=== PATIENT | female | born 1940 | race Caucasian/White ===

== ENCOUNTER 2019-07-03 17:42 | Inpatient (IN) | payer BC ==
[~2019-07-03] VITALS: Ht 162.6 cm; Wt 60.2 kg
[2019-07-03 19:00] VITALS: BP 225/85
[2019-07-03] MEDS ORDERED: guaiFENesin ORAL 200 MG/10 ML LIQUID. PO PRN (19:15)
[2019-07-03] MEDS ORDERED: LORazepam 0.5 MG TABLET PO PRN (19:15)
[2019-07-03] MEDS ORDERED: ALBUTEROL SULFATE 2.5 MG/3 ML NEBU. NEB PRN (19:15)
[2019-07-03] MEDS ORDERED: DOCUSATE SODIUM 100 MG CAPSULE. PO PRN (19:15)
[2019-07-03] MEDS ORDERED: ZOLPIDEM 5 MG TABLET. PO PRN (19:15)
[2019-07-03] MEDS ORDERED: ONDANSETRON PF 4 MG/2 ML VIAL. IV PRN (19:15)
--- NOTE | 2019-07-03 19:30 | PDOC1 ---
History and Physical Date of Admission Date of Admission 07/03/2019 Identification/Chief Complaint Chief Complaint I zhao coe Source Source: Chart review, Patient History of Present Illness History of Present Illness Patient is a 79 year old female who recently moved from [place] who was in her usual state of health until Wednesday when she started noticing dyspnea. she is currently having dialysis on wednesday and wednesday. She had her treatment as usual. She denies sick contacts, no sputum production, no pleurisy has been reported nevertheless she noticed dyspnea especially on exertion She denies dietary transgression no excessfluid intake wither, she denies PND no orthpnea reported, she does have a dry cough, no changes in her sense of smell or taste was reported. Patient at the time of my note is wearing 2 liters of oxygen she does not seem to have excess work of breathing nevertheless she does have evidence of Oscar b lines on x ray done at outside facility. She probably has volume overload and her BP is uncontrolled as per the outside facility report. She has been taking her medications which are not available with the paper work sent from outside facility plan of care explained in detail I have answered all her questions to the best of my abilities. Past Medical History Cardiovascular: CAD, HTN Pulmonary: Pulmonary embolus Renal/: Chronic renal insuff Past Surgical History Past Surgical History: Appendectomy Family History Family History: Family History Unknown Social History Smoke: No ALCOHOL: none Drugs: None ROS Review of System CONSTITUTIONAL: No fever or chills EYES: No recent changes SKIN: No rash or itching CARDIOVASCULAR: No chest pain, syncope, palpitations, or edema RESPIRATORY: No SOB or cough GASTROINTESTINAL: No nausea, vomiting or abdominal pain NEUROLOGICAL: No headaches or weakness ENDOCRINE: No cold or heat intolerance GENITOURINARY: No urgency or frequency of urination MUSCULOSKELETAL: No back pain or joint pain LYMPHATICS: No enlarged lymph nodes PSYCHIATRIC: No anxiety or depression Physical Exam Physical Exam GEN.: No apparent distress. Alert and oriented. HEENT: Head is normocephalic, atraumatic NECK: Supple. LUNGS: Clear to auscultation. HEART: RRR, S1, S2 present. Peripheral pulses intact ABDOMEN: Soft, nontender. Positive bowel sounds. EXTREMITIES: Without any cyanosis. NEUROLOGIC: Normal speech, normal tone PSYCHIATRIC: Normal affect, normal mood. SKIN: No ulcerations VTE Prophylaxis Ordered VTE Prophylaxis Devices: No VTE Pharmacological Prophylaxi: Yes Assessment/Plan Assessment/Plan Dyspnea which seems to be volume overload ESRD on HD Uncontrolled hypertension, hypertensive urgency as per outside facility COPD history of depression History of CAD with old WA as per records, currently asymtpomatic. Plan: consult nephrology for dialysis restart home meds once available will start amlodipine, lasix and hidralazine further recommendations based on the clinical course DVT prophylaxis: heparin ELIGIO JONES MD Jul 03, 2019 19:30
[2019-07-03] MEDS ORDERED: NICO1PAT21 TP (19:37)
[2019-07-03] MEDS ORDERED: HYDR-2869 PO (19:37)
[2019-07-03] MEDS ORDERED: NIFE30TA15 PO (19:38)
[2019-07-03] MEDS ORDERED: ATOR80TA72 PO (19:39)
[2019-07-03] MEDS ORDERED: LISI-130 PO (19:39)
[2019-07-03] MEDS ORDERED: ALBU2.5V8 IH (19:41)
[2019-07-03] MEDS ORDERED: CLOP75TA PO (19:42)
[2019-07-03] MEDS ORDERED: ASPI81TA59 PO (19:43)
[2019-07-03] MEDS ORDERED: NICOTINE 21MG PATCH. TD PRN (19:45)
[2019-07-03] MEDS: FUROSEMIDE 40 MG/4 ML VIAL. IVP SCH (20:52)
[2019-07-03] MEDS: ATORVASTATIN CALCIUM 20 MG TABLET PO SCH (20:52)
[2019-07-03] MEDS: amLODIPine BESYLATE 5 MG TABLET PO SCH (20:56)
[2019-07-03 22:31] VITALS: BP 222/108
[2019-07-03] MEDS: hydrALAZINE 20 MG/ML VIAL. IVP PRN (22:34)
[2019-07-03 22:58] VITALS: BP 246/110
--- NOTE | 2019-07-03 23:49 | NUR ---
Call placed to Re: bp 220/98 after hydralizine given and pt request tylenol pm.
[2019-07-04] VITALS (15 sets, daily range): BP systolic 129–221; BP diastolic 59–98
[2019-07-04] MEDS: ACETAMINOPHEN 325 MG TABLET. PO PRN (00:26)
--- NOTE | 2019-07-04 08:07 | PDOC ---
PROGRESS NOTES Chief Complaint Chief Complaint A/P: Dyspnea which seems to be volume overload ESRD on HD Uncontrolled hypertension, hypertensive urgency as per outside facility COPD history of depression History of CAD with old MS as per records, currently asymptomatic History of Present Illness History of Present Illness Ms Coburn is a 79 year old female w/ PMHx HTN, ESRD TuThSa, COPD, CAD who recently moved from [place] to [place], [place] who was in her usual state of health until 07/01/2019 when she started noticing dyspnea. She denies sick contacts, no sputum production, no pleurisy has been reported nevertheless she noticed dyspnea especially on exertion. She denies dietary transgression no excess fluid and in fact has modified her lifestyle significantly. Stable dry weight of 62kg. Did have desaturations less than 89%, placed on 2 liters of oxygen she does not seem to have excess work of breathing nevertheless she does have evidence of Oscar b lines on x ray done at outside facility. She probably has volume overload and her BP is uncontrolled as per the outside facility report. BNP > 35K. Still on O2. Seen on dialysis. Noted with goal 3300 UF at dialysis. No chest pain. Vitals Vitals Vital Signs Date Time Temp Pulse Resp B/P (MAP) Pulse Ox O2 Delivery O2 Flow Rate FiO2 07/04/19 06:17 98.7 66 18 129/59 (82) 97 Nasal Cannula 2.0 98.7 Physical Exam General: Alert, Oriented X3, Cooperative Heart: Regular rate, Normal S1, Normal S2 Lungs: Crackles Abdomen: Normal bowel sounds, Soft Extremities: No clubbing, No cyanosis, Other (1+) Skin: No rashes, No breakdown Labs LABS Laboratory Tests Test 07/04/19 07:31 Glucose (Fingerstick) 94 mg/dL (70-99) Comment Review of Relevant I have reviewed the following items harish (where applicable) has been applied. Labs Laboratory Tests Test 07/04/19 07:31 Glucose (Fingerstick) 94 mg/dL (70-99) Laboratory Tests Test 07/04/19 07:31 Glucose (Fingerstick) 94 mg/dL (70-99) Medications Current Medications Ondansetron HCl (Zofran) 4 mg PRN Q4HRS PRN IV NAUSEA/VOMITING; Start 07/03/19 at 19:15 Zolpidem Tartrate (Ambien) 5 mg PRN QHS PRN PO INSOMNIA; Start 07/03/19 at 19:15 Acetaminophen (Tylenol) 650 mg PRN Q4HRS PRN PO TEMP OVER 100.4F OR MILD PAIN Last administered on 07/04/19at 00:26; Start 07/03/19 at 19:15 Docusate Sodium (Colace) 100 mg PRN BID PRN PO CONSTIPATION; Start 07/03/19 at 19:15 Albuterol Sulfate (Ventolin Neb Soln) 2.5 mg PRN Q4HRS PRN NEB SHORTNESS OF BREATH Last administered on 07/04/19at 02:46; Start 07/03/19 at 19:15 Guaifenesin (Robitussin) 200 mg PRN Q4HRS PRN PO COUGH; Start 07/03/19 at 19:15 Lorazepam (Ativan) 0.5 mg PRN Q4HRS PRN PO ANXIETY / AGITATION; Start 07/03/19 at 19:15 Amlodipine Besylate (Norvasc) 5 mg DAILY PO Last administered on 07/03/19at 20:56; Start 07/03/19 at 21:00 Hydralazine HCl (Apresoline Inj) 10 mg PRN Q4HRS PRN IVP ELEVATED BP, SEE COMMENTS Last administered on 07/03/19at 22:34; Start 07/03/19 at 19:15 Furosemide (Lasix) 40 mg BID92 IVP Last administered on 07/03/19at 20:52; Start 07/03/19 at 21:00 Aspirin (Aspirin Chewable) 81 mg DAILY PO ; Start 07/04/19 at 09:00 Clopidogrel Bisulfate (Plavix) 75 mg DAILY PO ; Start 07/04/19 at 09:00 Nicotine (Nicoderm Cq 21mg) 1 patch PRN DAILY PRN TD NICOTINE WITHDRAWAL; Start 07/03/19 at 19:45 Atorvastatin Calcium (Lipitor) 20 mg QHS PO Last administered on 07/03/19at 20:52; Start 07/03/19 at 21:00 Nicardipine HCl 50 mg/Sodium Chloride 250 ml @ 25 mls/hr CONT PRN IV SEE I/O RECORD Last administered on 07/04/19at 00:36; Start 07/04/19 at 00:15 Active Scripts Active Reported Children's Aspirin (Aspirin) 81 Mg Tab.chew 1 Tab PO DAILY 30 Days Clopidogrel (Clopidogrel Bisulfate) 75 Mg Tablet 1 Tab PO DAILY Proair Hfa (Albuterol Sulfate) 8.5 Gm Hfa.aer.ad 2 Puff IH PRN Q4-6HRS PRN 21 Days Atorvastatin Calcium 80 Mg Tablet 20 Mg PO QHS Lisinopril 40 Mg Tablet 1 Tab PO DAILY Nifedipine Er (Nifedipine) 30 Mg Tablet.er 3 Tab PO BID Hydralazine Hcl 50 Mg Tablet 1.5 Tab PO TID NICODERM CQ 21mg (Nicotine) 1 Each Patch.td24 1 Patch TP DAILY PRN Vitals/I & O Vital Sign - Last 24 Hours 07/03/19 07/03/19 07/03/19 07/03/19 17:30 19:00 20:46 20:56 Temp 97.8 97.8 Pulse 81 64 Resp 22 B/P (MAP) 225/85 (131) 222/89 Pulse Ox 95 O2 Delivery Nasal Cannula Nasal Cannula Nasal Cannula O2 Flow Rate 2.0 2.0 2.0 07/03/19 07/03/19 07/03/19 07/03/19 22:31 22:34 22:55 22:58 Temp 99.6 99.6 Pulse 64 79 Resp 20 B/P (MAP) 222/108 (146) 222/108 246/110 (155) Pulse Ox 96 O2 Delivery Nasal Cannula Nasal Cannula O2 Flow Rate 2.0 2.0 07/04/19 07/04/19 07/04/19 07/04/19 00:36 01:04 01:35 01:53 Pulse 77 77 78 78 B/P (MAP) 221/98 (139) 189/86 (120) 170/63 (98) 188/78 (114) Pulse Ox 96 O2 Delivery Nasal Cannula O2 Flow Rate 2.0 07/04/19 07/04/19 07/04/19 07/04/19 02:05 02:35 02:46 03:27 Temp 98.4 98.4 Pulse 69 62 B/P (MAP) 169/73 (105) 153/68 (96) Pulse Ox 97 O2 Delivery Nasal Cannula O2 Flow Rate 2.0 07/04/19 07/04/19 03:37 06:17 Temp 98.7 98.7 Pulse 67 66 Resp 18 B/P (MAP) 148/64 (92) 129/59 (82) Pulse Ox 97 O2 Delivery Nasal Cannula O2 Flow Rate 2.0 Intake and Output 07/03/19 07/03/19 07/04/19 15:00 23:00 07:00 Intake Total 120 ml 550 ml Output Total 50 ml Balance 120 ml 500 ml SHAHANA OBRIEN MD Jul 04, 2019 08:07
[2019-07-04 09:27] LABS: BASO % 0 % (0-3); EOS % 1 % (0-3); HEMATOCRIT 33.4 % (36.0-47.0); HEMOGLOBIN 10.9 g/dL (12.0-15.5); LYMPH # 1.3 x10^3/uL (1.0-4.8); LYMPH % 17 % (24-48); MEAN CORPUSCULAR HEMOGLOBIN 35 pg (25-35); MEAN CORPUSCULAR HGB CONC 33 g/dL (31-37); MEAN CORPUSCULAR VOLUME 107 fL (79-100); MONO # 0.5 x10^3/uL (0.0-1.1); MONO % 6 % (0-9); NEUT # 5.8 x10^3/uL (1.8-7.7); NEUT % 76 % (31-73); PLATELET COUNT 234 x10^3/uL (140-400); RED BLOOD COUNT 3.13 x10^6/uL (3.50-5.40); RED CELL DISTRIBUTION WIDTH 15.1 % (11.5-14.5); WHITE BLOOD COUNT 7.7 x10^3/uL (4.0-11.0)
[2019-07-04] MEDS ORDERED: IV NORMAL SALINE 1000ML BAG 1,000 ML IV PRN ×2 (09:47)
[2019-07-04 09:50] LABS: CALCIUM 8.6 mg/dL (8.5-10.1); CREATININE 5.6 mg/dL (0.6-1.0); GFR 7.4; POTASSIUM 4.9 mmol/L (3.5-5.1)
[2019-07-04] MEDS: CLOPIDOGREL BISULFATE 75 MG TABLET PO SCH (09:50)
[2019-07-04] MEDS: amLODIPine BESYLATE 5 MG TABLET PO SCH (09:51)
[2019-07-04] MEDS: ASPIRIN CHEWABLE 81 MG TABLET. PO SCH (09:51)
[2019-07-04] MEDS: FUROSEMIDE 40 MG/4 ML VIAL. IVP SCH ×2 (09:51→16:44)
[2019-07-04 09:54] LABS: CHOLESTEROL/HDL RATIO 2.9
[2019-07-04] MEDS ORDERED: diphenhydrAMINE 50 MG/ML VIAL IV PRN ×2 (10:00)
[2019-07-04] MEDS ORDERED: ALBUMIN HUMAN 25% 200 ML IV PRN (10:00)
[2019-07-04] MEDS ORDERED: ACETAMINOPHEN 500 MG TABLET PO PRN (10:00)
[2019-07-04] MEDS ORDERED: DIALYSIS PATIENT. MC PRN (10:00)
--- NOTE | 2019-07-04 10:35 | CARD ---
MR#: [id number] Date of Study: 07/04/2019 Ordering Physician: ELIGIO JONES, Referring Physician: ELIGIO JONES Tech: Falguni Cintron RDCS APPROVED REPORT EXAM: Two-dimensional and M-mode echocardiogram with Doppler and color Doppler. Other Information Quality : Good INDICATION COPD Dyspnea Cardiac Disease: CAD ESRD RISK FACTORS Hypertension 2D DIMENSIONS Left Atrium(2D)4.6 (1.6-4.0cm)IVSd1.2 (0.7-1.1cm) Aortic Root(2D)2.7 (2.0-3.7cm)LVDd5.1 (3.9-5.9cm) LVOT Diameter1.9 (1.8-2.4cm)PWd0.9 (0.7-1.1cm) LVDs2.8 (2.5-4.0cm)FS (%) 30.0 % SV94.3 mlLVEF(%)60.0 (>50%) Aortic Valve AoV Peak Blaze.211.5cm/sAoV VTI48.0cm AO Peak GR.17.9mmHgLVOT Peak Blaze.145.4cm/s AO Mean GR.9mmHgAVA (VMAX)2.02cm2 SERVANDO (VTI)2.37em2LP P 1/2 Vhjo520hu Mitral Valve MV E Avoxswsg346.9cm/sMV DECEL [id number] MV A Xrwvgicc61.5cm/sE/A Ratio1.6 Tricuspid Valve TR P. Plkyejzt212bi/sRAP [id number] TR Peak Gr.50aoEuIXCF81dfMl Pulmonary Vein S1 Kdwkvcve96.9cm/sD2 Loxsoclz376.1cm/s LEFT VENTRICLE The left ventricle is normal size. There is mild concentric left ventricular hypertrophy. The left ve ntricular systolic function is normal. The Ejection Fraction is 55-60%. There is normal LV segmental wall motion. Transmitral Doppler flow pattern is Grade II-pseudonormal filling dynamics. RIGHT VENTRICLE The right ventricle is normal size. The right ventricular systolic function is normal. ATRIA The left atrium is mildly dilated. The right atrium size is normal. The interatrial septum is intact with no evidence for an atrial septal defect or patent foramen ovale as noted on 2-D or Doppler imagi ng. AORTIC VALVE The aortic valve is calcified but opens well. Doppler and Color Flow revealed moderate aortic regurgi tation. There is no significant aortic valvular stenosis. MITRAL VALVE The mitral valve is calcified but opens well. Mitral annular calcification is mild. There is no evide nce of mitral valve prolapse. There is no mitral valve stenosis. Doppler and Color-flow revealed mild mitral regurgitation. TRICUSPID VALVE The tricuspid valve is normal in structure and function. Doppler and Color Flow revealed mild tricusp id regurgitation. There is moderate-severe pulmonary hypertension. The PA pressure was estimated at 6 3 mmHg. There is no tricuspid valve stenosis. PULMONIC VALVE The pulmonic valve is not well visualized. Doppler and Color Flow revealed mild pulmonic valvular reg urgitation. There is no pulmonic valvular stenosis. GREAT VESSELS The aortic root is normal in size. The ascending aorta is not well seen. The IVC is normal in size an d collapses >50% with inspiration. PERICARDIAL EFFUSION There is no evidence of significant pericardial effusion. Critical Notification Critical Value: No <Conclusion> The left ventricular systolic function is normal. The Ejection Fraction is 55-60%. There is normal LV segmental wall motion. Transmitral Doppler flow pattern is Grade II-pseudonormal filling dynamics. Moderate aortic regurgitation. Mild mitral regurgitation. Mild tricuspid regurgitation. The PA pressure was estimated at 63 mmHg. There is no evidence of significant pericardial effusion. Signed by : Jose Ochoa, Electronically Approved : 07/04/2019 10:35:11
--- NOTE | 2019-07-04 11:26 | PDOC2 ---
CONSULT Date of Consult Date of Consult DATE: 07/04/19 TIME: 11:21 Reason for Consult Reason for Consult: ESRD AND SOB Referring Physician Referring Physician: ROBERT Identification/Chief Complaint Chief Complaint SOB Source Source: Chart review, Patient History of Present Illness Reason for Visit: THIS IS A 79 YR OLD ESRD PT WITH SOB AND ESRD . HAS OP HD ON TTS. STILL FELT SOB AFTER HAVING HER TX ON SAT. WENT TO [facility] AND I WAS CONTACTED BY DR COOPER ABOUT HER NEED TO BE ADMITTED FOR DIALYSIS. IMAGING THERE NOTABLE FOR CHF. SHE ALSO HAS A HX OF COPD BUT NOT O2 DEPENDENT. LABS ARE C/W ESRD. HER BNP IS VERY HIGH. SHE HAS HER HD VIA LEFT ARM AVF. SHE HAS HER OP HD AT [facility] Past Medical History Cardiovascular: CAD, HTN Pulmonary: Pulmonary embolus Heme/Onc: Anemia NOS Renal/: Chronic renal failure Endocrine: Hyperparathyroidism Past Surgical History Past Surgical History: Appendectomy Family History Family History: No Significant, Family History Unknown Social History No ALCOHOL: none Drugs: None Lives: Alone Current Medications Current Medications Current Medications Ondansetron HCl (Zofran) 4 mg PRN Q4HRS PRN IV NAUSEA/VOMITING; Start 07/03/19 at 19:15 Zolpidem Tartrate (Ambien) 5 mg PRN QHS PRN PO INSOMNIA; Start 07/03/19 at 19:15 Acetaminophen (Tylenol) 650 mg PRN Q4HRS PRN PO TEMP OVER 100.4F OR MILD PAIN Last administered on 07/04/19at 00:26; Start 07/03/19 at 19:15 Docusate Sodium (Colace) 100 mg PRN BID PRN PO CONSTIPATION; Start 07/03/19 at 19:15 Albuterol Sulfate (Ventolin Neb Soln) 2.5 mg PRN Q4HRS PRN NEB SHORTNESS OF BREATH Last administered on 07/04/19at 02:46; Start 07/03/19 at 19:15 Guaifenesin (Robitussin) 200 mg PRN Q4HRS PRN PO COUGH; Start 07/03/19 at 19:15 Lorazepam (Ativan) 0.5 mg PRN Q4HRS PRN PO ANXIETY / AGITATION; Start 07/03/19 at 19:15 Amlodipine Besylate (Norvasc) 5 mg DAILY PO Last administered on 07/04/19at 09:51; Start 07/03/19 at 21:00 Hydralazine HCl (Apresoline Inj) 10 mg PRN Q4HRS PRN IVP ELEVATED BP, SEE COMMENTS Last administered on 07/03/19at 22:34; Start 07/03/19 at 19:15 Furosemide (Lasix) 40 mg BID92 IVP Last administered on 07/04/19at 09:51; Start 07/03/19 at 21:00 Aspirin (Aspirin Chewable) 81 mg DAILY PO Last administered on 07/04/19at 09:51; Start 07/04/19 at 09:00 Clopidogrel Bisulfate (Plavix) 75 mg DAILY PO Last administered on 07/04/19at 09:50; Start 07/04/19 at 09:00 Nicotine (Nicoderm Cq 21mg) 1 patch PRN DAILY PRN TD NICOTINE WITHDRAWAL; Start 07/03/19 at 19:45 Atorvastatin Calcium (Lipitor) 20 mg QHS PO Last administered on 07/03/19at 20:52; Start 07/03/19 at 21:00 Nicardipine HCl 50 mg/Sodium Chloride 250 ml @ 25 mls/hr CONT PRN IV SEE I/O RECORD Last administered on 07/04/19at 10:43; Start 07/04/19 at 00:15 Sodium Chloride 1,000 ml @ 1,000 mls/hr Q1H PRN IV hypotension; Start 07/04/19 at 09:47; Stop 07/04/19 at 15:46 Albumin Human 200 ml @ 200 mls/hr 1X PRN PRN IV Hypotension; Start 07/04/19 at 10:00; Stop 07/04/19 at 15:59 Acetaminophen (Tylenol) 500 mg 1X PRN PRN PO MILD PAIN / TEMP; Start 07/04/19 a t 10:00; Stop 07/05/19 at 09:59 Diphenhydramine HCl (Benadryl) 25 mg 1X PRN PRN IV ITCHING; Start 07/04/19 at 10:00; Stop 07/05/19 at 09:59 Diphenhydramine HCl (Benadryl) 25 mg 1X PRN PRN IV ITCHING; Start 07/04/19 at 10:00; Stop 07/05/19 at 09:59 Sodium Chloride 1,000 ml @ 400 mls/hr Q2H30M PRN IV PATENCY; Start 07/04/19 at 09:47; Stop 07/04/19 at 21:46 Info (PHARMACY MONITORING -- do not chart) 1 each PRN DAILY PRN MC SEE COMMENTS; Start 07/04/19 at 10:00 Active Scripts Active Reported Children's Aspirin (Aspirin) 81 Mg Tab.chew 1 Tab PO DAILY 30 Days Clopidogrel (Clopidogrel Bisulfate) 75 Mg Tablet 1 Tab PO DAILY Proair Hfa (Albuterol Sulfate) 8.5 Gm Hfa.aer.ad 2 Puff IH PRN Q4-6HRS PRN 21 Days Atorvastatin Calcium 80 Mg Tablet 20 Mg PO QHS Lisinopril 40 Mg Tablet 1 Tab PO DAILY Nifedipine Er (Nifedipine) 30 Mg Tablet.er 3 Tab PO BID Hydralazine Hcl 50 Mg Tablet 1.5 Tab PO TID NICODERM CQ 21mg (Nicotine) 1 Each Patch.td24 1 Patch TP DAILY PRN Allergies Allergies: Coded Allergies: Sulfa (Sulfonamide Antibiotics) (Verified Allergy, Severe, 07/03/19) iodine (Verified Allergy, Severe, 07/03/19) azithromycin (Verified Allergy, Intermediate, 07/03/19) carvedilol (Verified Adverse Reaction, Severe, 07/03/19) ROS General: YES: Fatigue, Malaise, Appetite PSYCHOLOGICAL ROS: YES: Anxiety, Depression Eyes: Yes Blurry vision HEENT: YES: Heacaches Respiratory: YES: Cough, Shortness of breath Cardiovascular: yes Lt Headedness Gastrointestinal: Yes Constipation Genitourinary: YES Other (ANURIA) Musculoskeletal: Yes Muscular Weakness Neurological: Yes Weakness Skin: Yes Dry Skin Physical Exam General: Alert, Oriented X3, Cooperative, mild distress HEENT: Atraumatic, PERRLA, EOMI Lungs: Other (BASILAR RALES) Heart: Regular rate, Normal S1, Normal S2 Abdomen: Normal bowel sounds, Soft, No tenderness Extremities: No clubbing Skin: No breakdown Neuro: Normal speech, Sensation intact Psych/Mental Status: Mental status NL, Mood NL MUSCULOSKELETAL: No joint tenderness, No deformity, No swelling, Other (LEFT ARM AVF WITH GOOD THRILL AND BRUIT) Vitals VITALS Vital Signs Date Time Temp Pulse Resp B/P (MAP) Pulse Ox O2 Delivery O2 Flow Rate FiO2 07/04/19 09:51 66 129/59 07/04/19 07:43 Nasal Cannula 2.0 07/04/19 06:17 98.7 18 97 98.7 Labs Labs Laboratory Tests Test 07/04/19 07:31 07/04/19 09:00 Glucose (Fingerstick) 94 mg/dL (70-99) White Blood Count 7.7 x10^3/uL (4.0-11.0) Red Blood Count 3.13 x10^6/uL (3.50-5.40) Hemoglobin 10.9 g/dL (12.0-15.5) Hematocrit 33.4 % (36.0-47.0) Mean Corpuscular Volume 107 fL (79-100) Mean Corpuscular Hemoglobin 35 pg (25-35) Mean Corpuscular Hemoglobin Concent 33 g/dL (31-37) Red Cell Distribution Width 15.1 % (11.5-14.5) Platelet Count 234 x10^3/uL (140-400) Neutrophils (%) (Auto) 76 % (31-73) Lymphocytes (%) (Auto) 17 % (24-48) Monocytes (%) (Auto) 6 % (0-9) Eosinophils (%) (Auto) 1 % (0-3) Basophils (%) (Auto) 0 % (0-3) Neutrophils # (Auto) 5.8 x10^3/uL (1.8-7.7) Lymphocytes # (Auto) 1.3 x10^3/uL (1.0-4.8) Monocytes # (Auto) 0.5 x10^3/uL (0.0-1.1) Eosinophils # (Auto) 0.0 x10^3/uL (0.0-0.7) Basophils # (Auto) 0.0 x10^3/uL (0.0-0.2) Sodium Level 144 mmol/L (136-145) Potassium Level 4.9 mmol/L (3.5-5.1) Chloride Level 106 mmol/L (98-107) Carbon Dioxide Level 28 mmol/L (21-32) Anion Gap 10 (6-14) Blood Urea Nitrogen 45 mg/dL (7-20) Creatinine 5.6 mg/dL (0.6-1.0) Estimated GFR (Cockcroft-Gault) 7.4 Glucose Level 123 mg/dL (70-99) Calcium Level 8.6 mg/dL (8.5-10.1) PZ-Iop-L-Type Natriuretic Peptide > 14404 pg/mL (0-449) Triglycerides Level 70 mg/dL (0-150) Cholesterol Level 137 mg/dL (0-200) LDL Cholesterol, Calculated 76 mg/dL (0-100) VLDL Cholesterol, Calculated 14 mg/dL (0-40) Non-HDL Cholesterol Calculated 90 mg/dL (0-129) HDL Cholesterol 47 mg/dL (40-60) Cholesterol/HDL Ratio 2.9 Laboratory Tests Test 07/04/19 07:31 07/04/19 09:00 Glucose (Fingerstick) 94 mg/dL (70-99) White Blood Count 7.7 x10^3/uL (4.0-11.0) Red Blood Count 3.13 x10^6/uL (3.50-5.40) Hemoglobin 10.9 g/dL (12.0-15.5) Hematocrit 33.4 % (36.0-47.0) Mean Corpuscular Volume 107 fL (79-100) Mean Corpuscular Hemoglobin 35 pg (25-35) Mean Corpuscular Hemoglobin Concent 33 g/dL (31-37) Red Cell Distribution Width 15.1 % (11.5-14.5) Platelet Count 234 x10^3/uL (140-400) Neutrophils (%) (Auto) 76 % (31-73) Lymphocytes (%) (Auto) 17 % (24-48) Monocytes (%) (Auto) 6 % (0-9) Eosinophils (%) (Auto) 1 % (0-3) Basophils (%) (Auto) 0 % (0-3) Neutrophils # (Auto) 5.8 x10^3/uL (1.8-7.7) Lymphocytes # (Auto) 1.3 x10^3/uL (1.0-4.8) Monocytes # (Auto) 0.5 x10^3/uL (0.0-1.1) Eosinophils # (Auto) 0.0 x10^3/uL (0.0-0.7) Basophils # (Auto) 0.0 x10^3/uL (0.0-0.2) Sodium Level 144 mmol/L (136-145) Potassium Level 4.9 mmol/L (3.5-5.1) Chloride Level 106 mmol/L (98-107) Carbon Dioxide Level 28 mmol/L (21-32) Anion Gap 10 (6-14) Blood Urea Nitrogen 45 mg/dL (7-20) Creatinine 5.6 mg/dL (0.6-1.0) Estimated GFR (Cockcroft-Gault) 7.4 Glucose Level 123 mg/dL (70-99) Calcium Level 8.6 mg/dL (8.5-10.1) YX-Muc-M-Type Natriuretic Peptide > 83839 pg/mL (0-449) Triglycerides Level 70 mg/dL (0-150) Cholesterol Level 137 mg/dL (0-200) LDL Cholesterol, Calculated 76 mg/dL (0-100) VLDL Cholesterol, Calculated 14 mg/dL (0-40) Non-HDL Cholesterol Calculated 90 mg/dL (0-129) HDL Cholesterol 47 mg/dL (40-60) Cholesterol/HDL Ratio 2.9 Assessment/Plan Assessment/Plan IMP ESRD ANEMIA HTN COPD CHF-DIASTOLIC ACUTE AND CHRONIC PLAN HD TODAY UF TO DW SUPPLEMENTAL O2 NEEDED YAIMA WHEN NEEDED WILL FOLLOW STEPHAN CAMPOS MD Jul 04, 2019 11:26
--- NOTE | 2019-07-04 11:41 | NUR ---
SS following for discharge planning. SS reviewed pt chart and discussed with pt RN. Pt is from home and is currently requiring oxygen. Pt has hemodialysis on Wednesday, , and Wednesday, at [facility], ; fax [phone]. SS will continue to follow for discharge planning.
--- NOTE | 2019-07-04 14:37 | NUR ---
Wound Care Pt off unit, will see tomorrow.
[2019-07-04] MEDS: ATORVASTATIN CALCIUM 20 MG TABLET PO SCH (20:14)
[2019-07-05] VITALS (16 sets, daily range): BP systolic 130–183; BP diastolic 60–83
--- NOTE | 2019-07-05 08:03 | PDOC ---
PROGRESS NOTES Chief Complaint Chief Complaint A/P: Dyspnea which seems to be volume overload ESRD on HD Uncontrolled hypertension, hypertensive urgency as per outside facility COPD history of depression History of CAD with old MT as per records, currently asymptomatic History of Present Illness History of Present Illness Ms Coburn is a 79 year old female w/ PMHx HTN, ESRD TuThSa, COPD, CAD who recently moved from [place] to [place], [place] who was in her usual state of health until 07/01/2019 when she started noticing dyspnea. She denies sick contacts, no sputum production, no pleurisy has been reported nevertheless she noticed dyspnea especially on exertion. She denies dietary transgression no excess fluid and in fact has modified her lifestyle significantly. Stable dry weight of 62kg. Did have desaturations less than 89%, placed on 2 liters of oxygen she does not seem to have excess work of breathing nevertheless she does have evidence of Oscar b lines on x ray done at outside facility. She probably has volume overload and her BP is uncontrolled as per the outside facility report. 07/03: BNP > 35K. Still on O2. Seen on dialysis. Noted with goal 3300 UF at dialysis. No chest pain. Still short of breath with yellow sputum today. Wheezing. Feeling somewhat better after dialysis, has a good appetite. Vitals Vitals Vital Signs Date Time Temp Pulse Resp B/P (MAP) Pulse Ox O2 Delivery O2 Flow Rate FiO2 07/05/19 07:00 98.1 65 16 144/66 (92) 99 BiPAP/CPAP 2.0 98.1 Physical Exam General: Alert, Oriented X3, Cooperative Heart: Regular rate, Normal S1, Normal S2 Lungs: Crackles Abdomen: Normal bowel sounds, Soft Extremities: No clubbing, No cyanosis, Other (1+) Skin: No rashes, No breakdown Labs LABS Laboratory Tests Test 07/04/19 09:00 07/04/19 17:07 07/04/19 21:15 07/05/19 07:58 White Blood Count 7.7 x10^3/uL (4.0-11.0) Red Blood Count 3.13 x10^6/uL (3.50-5.40) Hemoglobin 10.9 g/dL (12.0-15.5) Hematocrit 33.4 % (36.0-47.0) Mean Corpuscular Volume 107 fL (79-100) Mean Corpuscular Hemoglobin 35 pg (25-35) Mean Corpuscular Hemoglobin Concent 33 g/dL (31-37) Red Cell Distribution Width 15.1 % (11.5-14.5) Platelet Count 234 x10^3/uL (140-400) Neutrophils (%) (Auto) 76 % (31-73) Lymphocytes (%) (Auto) 17 % (24-48) Monocytes (%) (Auto) 6 % (0-9) Eosinophils (%) (Auto) 1 % (0-3) Basophils (%) (Auto) 0 % (0-3) Neutrophils # (Auto) 5.8 x10^3/uL (1.8-7.7) Lymphocytes # (Auto) 1.3 x10^3/uL (1.0-4.8) Monocytes # (Auto) 0.5 x10^3/uL (0.0-1.1) Eosinophils # (Auto) 0.0 x10^3/uL (0.0-0.7) Basophils # (Auto) 0.0 x10^3/uL (0.0-0.2) Sodium Level 144 mmol/L (136-145) Potassium Level 4.9 mmol/L (3.5-5.1) Chloride Level 106 mmol/L (98-107) Carbon Dioxide Level 28 mmol/L (21-32) Anion Gap 10 (6-14) Blood Urea Nitrogen 45 mg/dL (7-20) Creatinine 5.6 mg/dL (0.6-1.0) Estimated GFR (Cockcroft-Gault) 7.4 Glucose Level 123 mg/dL (70-99) Calcium Level 8.6 mg/dL (8.5-10.1) SN-Jhm-U-Type Natriuretic Peptide > 16412 pg/mL (0-449) Triglycerides Level 70 mg/dL (0-150) Cholesterol Level 137 mg/dL (0-200) LDL Cholesterol, Calculated 76 mg/dL (0-100) VLDL Cholesterol, Calculated 14 mg/dL (0-40) Non-HDL Cholesterol Calculated 90 mg/dL (0-129) HDL Cholesterol 47 mg/dL (40-60) Cholesterol/HDL Ratio 2.9 Vitamin B12 Level 253 pg/mL (247-911) Glucose (Fingerstick) 124 mg/dL (70-99) 118 mg/dL (70-99) 70 mg/dL (70-99) Comment Review of Relevant I have reviewed the following items harish (where applicable) has been applied. Labs Laboratory Tests Test 07/04/19 07:31 07/04/19 09:00 07/04/19 17:07 07/04/19 21:15 Glucose (Fingerstick) 94 mg/dL (70-99) 124 mg/dL (70-99) 118 mg/dL (70-99) White Blood Count 7.7 x10^3/uL (4.0-11.0) Red Blood Count 3.13 x10^6/uL (3.50-5.40) Hemoglobin 10.9 g/dL (12.0-15.5) Hematocrit 33.4 % (36.0-47.0) Mean Corpuscular Volume 107 fL (79-100) Mean Corpuscular Hemoglobin 35 pg (25-35) Mean Corpuscular Hemoglobin Concent 33 g/dL (31-37) Red Cell Distribution Width 15.1 % (11.5-14.5) Platelet Count 234 x10^3/uL (140-400) Neutrophils (%) (Auto) 76 % (31-73) Lymphocytes (%) (Auto) 17 % (24-48) Monocytes (%) (Auto) 6 % (0-9) Eosinophils (%) (Auto) 1 % (0-3) Basophils (%) (Auto) 0 % (0-3) Neutrophils # (Auto) 5.8 x10^3/uL (1.8-7.7) Lymphocytes # (Auto) 1.3 x10^3/uL (1.0-4.8) Monocytes # (Auto) 0.5 x10^3/uL (0.0-1.1) Eosinophils # (Auto) 0.0 x10^3/uL (0.0-0.7) Basophils # (Auto) 0.0 x10^3/uL (0.0-0.2) Sodium Level 144 mmol/L (136-145) Potassium Level 4.9 mmol/L (3.5-5.1) Chloride Level 106 mmol/L (98-107) Carbon Dioxide Level 28 mmol/L (21-32) Anion Gap 10 (6-14) Blood Urea Nitrogen 45 mg/dL (7-20) Creatinine 5.6 mg/dL (0.6-1.0) Estimated GFR (Cockcroft-Gault) 7.4 Glucose Level 123 mg/dL (70-99) Calcium Level 8.6 mg/dL (8.5-10.1) ZM-How-F-Type Natriuretic Peptide > 95545 pg/mL (0-449) Triglycerides Level 70 mg/dL (0-150) Cholesterol Level 137 mg/dL (0-200) LDL Cholesterol, Calculated 76 mg/dL (0-100) VLDL Cholesterol, Calculated 14 mg/dL (0-40) Non-HDL Cholesterol Calculated 90 mg/dL (0-129) HDL Cholesterol 47 mg/dL (40-60) Cholesterol/HDL Ratio 2.9 Vitamin B12 Level 253 pg/mL (247-911) Test 07/05/19 07:58 Glucose (Fingerstick) 70 mg/dL (70-99) Laboratory Tests Test 07/04/19 09:00 07/04/19 17:07 07/04/19 21:15 07/05/19 07:58 White Blood Count 7.7 x10^3/uL (4.0-11.0) Red Blood Count 3.13 x10^6/uL (3.50-5.40) Hemoglobin 10.9 g/dL (12.0-15.5) Hematocrit 33.4 % (36.0-47.0) Mean Corpuscular Volume 107 fL (79-100) Mean Corpuscular Hemoglobin 35 pg (25-35) Mean Corpuscular Hemoglobin Concent 33 g/dL (31-37) Red Cell Distribution Width 15.1 % (11.5-14.5) Platelet Count 234 x10^3/uL (140-400) Neutrophils (%) (Auto) 76 % (31-73) Lymphocytes (%) (Auto) 17 % (24-48) Monocytes (%) (Auto) 6 % (0-9) Eosinophils (%) (Auto) 1 % (0-3) Basophils (%) (Auto) 0 % (0-3) Neutrophils # (Auto) 5.8 x10^3/uL (1.8-7.7) Lymphocytes # (Auto) 1.3 x10^3/uL (1.0-4.8) Monocytes # (Auto) 0.5 x10^3/uL (0.0-1.1) Eosinophils # (Auto) 0.0 x10^3/uL (0.0-0.7) Basophils # (Auto) 0.0 x10^3/uL (0.0-0.2) Sodium Level 144 mmol/L (136-145) Potassium Level 4.9 mmol/L (3.5-5.1) Chloride Level 106 mmol/L (98-107) Carbon Dioxide Level 28 mmol/L (21-32) Anion Gap 10 (6-14) Blood Urea Nitrogen 45 mg/dL (7-20) Creatinine 5.6 mg/dL (0.6-1.0) Estimated GFR (Cockcroft-Gault) 7.4 Glucose Level 123 mg/dL (70-99) Calcium Level 8.6 mg/dL (8.5-10.1) AW-Sqb-D-Type Natriuretic Peptide > 55643 pg/mL (0-449) Triglycerides Level 70 mg/dL (0-150) Cholesterol Level 137 mg/dL (0-200) LDL Cholesterol, Calculated 76 mg/dL (0-100) VLDL Cholesterol, Calculated 14 mg/dL (0-40) Non-HDL Cholesterol Calculated 90 mg/dL (0-129) HDL Cholesterol 47 mg/dL (40-60) Cholesterol/HDL Ratio 2.9 Vitamin B12 Level 253 pg/mL (247-911) Glucose (Fingerstick) 124 mg/dL (70-99) 118 mg/dL (70-99) 70 mg/dL (70-99) Medications Current Medications Ondansetron HCl (Zofran) 4 mg PRN Q4HRS PRN IV NAUSEA/VOMITING; Start 07/03/19 at 19:15 Zolpidem Tartrate (Ambien) 5 mg PRN QHS PRN PO INSOMNIA; Start 07/03/19 at 19:15; Stop 07/04/19 at 13:47; Status DC Acetaminophen (Tylenol) 650 mg PRN Q4HRS PRN PO TEMP OVER 100.4F OR MILD PAIN Last administered on 07/04/19at 00:26; Start 07/03/19 at 19:15 Docusate Sodium (Colace) 100 mg PRN BID PRN PO CONSTIPATION; Start 07/03/19 at 19:15 Albuterol Sulfate (Ventolin Neb Soln) 2.5 mg PRN Q4HRS PRN NEB SHORTNESS OF BREATH Last administered on 07/04/19at 02:46; Start 07/03/19 at 19:15 Guaifenesin (Robitussin) 200 mg PRN Q4HRS PRN PO COUGH; Start 07/03/19 at 19:15 Lorazepam (Ativan) 0.5 mg PRN Q4HRS PRN PO ANXIETY / AGITATION; Start 07/03/19 at 19:15; Stop 07/04/19 at 13:47; Status DC Amlodipine Besylate (Norvasc) 5 mg DAILY PO Last administered on 07/04/19at 09:51; Start 07/03/19 at 21:00 Hydralazine HCl (Apresoline Inj) 10 mg PRN Q4HRS PRN IVP ELEVATED BP, SEE COMMENTS Last administered on 07/03/19at 22:34; Start 07/03/19 at 19:15 Furosemide (Lasix) 40 mg BID92 IVP Last administered on 07/04/19at 16:44; Start 07/03/19 at 21:00 Aspirin (Aspirin Chewable) 81 mg DAILY PO Last administered on 07/04/19at 09:51; Start 07/04/19 at 09:00 Clopidogrel Bisulfate (Plavix) 75 mg DAILY PO Last administered on 07/04/19at 09:50; Start 07/04/19 at 09:00 Nicotine (Nicoderm Cq 21mg) 1 patch PRN DAILY PRN TD NICOTINE WITHDRAWAL; S tart 07/03/19 at 19:45 Atorvastatin Calcium (Lipitor) 20 mg QHS PO Last administered on 07/04/19at 20:14; Start 07/03/19 at 21:00 Nicardipine HCl 50 mg/Sodium Chloride 250 ml @ 25 mls/hr CONT PRN IV SEE I/O RECORD Last administered on 07/05/19at 06:46; Start 07/04/19 at 00:15 Sodium Chloride 1,000 ml @ 1,000 mls/hr Q1H PRN IV hypotension; Start 07/04/19 at 09:47; Stop 07/04/19 at 15:46; Status DC Albumin Human 200 ml @ 200 mls/hr 1X PRN PRN IV Hypotension; Start 07/04/19 at 10:00; Stop 07/04/19 at 15:59; Status DC Acetaminophen (Tylenol) 500 mg 1X PRN PRN PO MILD PAIN / TEMP Last administered on 07/04/19at 20:14; Start 07/04/19 at 10:00; Stop 07/05/19 at 09:59 Diphenhydramine HCl (Benadryl) 25 mg 1X PRN PRN IV ITCHING; Start 07/04/19 at 10:00; Stop 07/05/19 at 09:59 Diphenhydramine HCl (Benadryl) 25 mg 1X PRN PRN IV ITCHING; Start 07/04/19 at 10:00; Stop 07/05/19 at 09:59 Sodium Chloride 1,000 ml @ 400 mls/hr Q2H30M PRN IV PATENCY; Start 07/04/19 at 09:47; Stop 07/04/19 at 21:46; Status DC Info (PHARMACY MONITORING -- do not chart) 1 each PRN DAILY PRN MC SEE COMMENTS; Start 07/04/19 at 10:00 Trazodone HCl (Desyrel) 50 mg PRN QHS PRN PO INSOMNIA; Start 07/04/19 at 21:00 Active Scripts Active Reported Children's Aspirin (Aspirin) 81 Mg Tab.chew 1 Tab PO DAILY 30 Days Clopidogrel (Clopidogrel Bisulfate) 75 Mg Tablet 1 Tab PO DAILY Proair Hfa (Albuterol Sulfate) 8.5 Gm Hfa.aer.ad 2 Puff IH PRN Q4-6HRS PRN 21 Days Atorvastatin Calcium 80 Mg Tablet 20 Mg PO QHS Lisinopril 40 Mg Tablet 1 Tab PO DAILY Nifedipine Er (Nifedipine) 30 Mg Tablet.er 3 Tab PO BID Hydralazine Hcl 50 Mg Tablet 1.5 Tab PO TID NICODERM CQ 21mg (Nicotine) 1 Each Patch.td24 1 Patch TP DAILY PRN Vitals/I & O Vital Sign - Last 24 Hours 07/04/19 07/04/19 07/04/19 07/04/19 09:51 15:00 19:00 19:51 Temp 98.1 98.1 Pulse 66 75 70 Resp 18 18 B/P (MAP) 129/59 139/62 (87) 158/71 (100) Pulse Ox 96 95 O2 Delivery Nasal Cannula Nasal Cannula Nasal Cannula O2 Flow Rate 2.0 2.0 2.0 07/04/19 07/04/19 07/04/19 07/04/19 19:55 20:55 23:00 23:26 Temp 98.3 98.3 98.3 98.3 Pulse 67 65 70 69 Resp 18 18 18 18 B/P (MAP) 158/71 (100) 177/72 (107) 152/68 (96) 152/69 (96) Pulse Ox 96 99 98 O2 Delivery Nasal Cannula Nasal Cannula Nasal Cannula Nasal Cannula O2 Flow Rate 2.0 94.0 2.0 2.0 07/05/19 07/05/19 07/05/19 07/05/19 00:11 01:02 02:00 03:28 Temp 98.4 98.4 Pulse 69 66 69 66 Resp 20 20 20 20 B/P (MAP) 142/64 (90) 162/71 (101) 139/63 (88) 153/70 (97) Pulse Ox 98 97 98 98 O2 Delivery Nasal Cannula Nasal Cannula Nasal Cannula Nasal Cannula O2 Flow Rate 2.0 2.0 2.0 2.0 07/05/19 07/05/19 07/05/19 07/05/19 04:02 05:00 06:00 07:00 Temp 98.1 98.1 Pulse 61 62 58 65 Resp 20 20 20 16 B/P (MAP) 130/60 (83) 147/68 (94) 153/68 (96) 144/66 (92) Pulse Ox 99 99 98 99 O2 Delivery Nasal Cannula Nasal Cannula Nasal Cannula BiPAP/CPAP O2 Flow Rate 2.0 2.0 2.0 2.0 Intake and Output 07/04/19 07/04/19 07/05/19 15:00 23:00 07:00 Intake Total 0 ml 600 ml Output Total 50 ml 50 ml 50 ml Balance -50 ml -50 ml 550 ml SHAHANA OBRIEN MD Jul 05, 2019 08:03
[2019-07-05] MEDS ORDERED: CYANOCOBALAMIN (VITAMIN B-12) 1,000 MCG/ML VIAL IM ONE (08:15)
[2019-07-05] MEDS: amLODIPine BESYLATE 5 MG TABLET PO SCH (09:14)
[2019-07-05] MEDS: ASPIRIN CHEWABLE 81 MG TABLET. PO SCH (09:14)
[2019-07-05] MEDS: CLOPIDOGREL BISULFATE 75 MG TABLET PO SCH (09:14)
[2019-07-05] MEDS: FUROSEMIDE 40 MG/4 ML VIAL. IVP SCH ×2 (09:14→15:04)
--- NOTE | 2019-07-05 11:13 | PDOC ---
Renal-Progress Notes Subjective Notes Notes LESS SOB History of Present Illness Hx of present illness STABLE Vitals Vitals Vital Signs Date Time Temp Pulse Resp B/P (MAP) Pulse Ox O2 Delivery O2 Flow Rate FiO2 07/05/19 09:14 65 07/05/19 07:00 98.1 16 144/66 (92) 99 BiPAP/CPAP 2.0 98.1 Weight Weight [ ] I.O. Intake and Output Intake and Output 07/05/19 07:00 Intake Total 600 ml Output Total 150 ml Balance 450 ml Intake Oral 300 ml Other 300 ml Output Urine Total 150 ml Labs Labs Laboratory Tests Test 07/04/19 17:07 07/04/19 21:15 07/05/19 07:58 Glucose (Fingerstick) 124 mg/dL (70-99) 118 mg/dL (70-99) 70 mg/dL (70-99) Review of Systems Constitutional: yes: alert, oriented Ears/Nose/Throat: Yes: no symptom reported Eyes: Yes: no symptom reported Pulmonary: Yes dyspnea Cardiovascular: Yes no symptom reported Gastrointestional: Yes: no symptom reported Genitourinary: Yes: no symptom reported Musculoskeletal: Yes: muscle stiffness Skin: Yes no symptom reported Psychiatric/Neurological: Yes: no symptom reported Endocrine: Yes: no symptom reported Physical Exam General Appearance: no apparent distress Skin: warm Respiratory: decreased breath sounds Heart: S1S2 Abdomen: soft, bowel sounds present Genitourinary: bladder flat Extremities: pulses present Neurology: alert Assessment Assessment IMP ESRD ANEMIA HTN COPD CHF-DIASTOLIC ACUTE AND CHRONIC PLAN HD TOMORROW SUPPLEMENTAL O2 NEEDED YAIMA WHEN NEEDED WILL FOLLOW STEPHAN CAMPOS MD Jul 05, 2019 11:13
--- NOTE | 2019-07-05 12:50 | PDOC2 ---
CLARENCE SINGER POLE CLASSIFIER 07/05/19 1250: CARDIAC CONSULT DATE OF CONSULT Date of Consult DATE: 07/05/19 TIME: 12:40 REASON FOR CONSULT Reason for Consult: Acute CHF REFERRING PHYSICIAN Referring Physician: Lashell SOURCE Source: Chart review, Patient HISTORY OF PRESENT ILLNESS HISTORY OF PRESENT ILLNESS This is a pleasant 79 yo female admitted for complains of shortness of breath. This is more with exertion. Apparently her BP has been significantly high in last 2 dialysis checks but does not check her BP at home. Positive for orthopnea, has occasional sharp chest pain but no palpitations. No fever or chills. She is compliant with her HD and has been ESRD for about 1.5 yrs due to DM/HTN. She was eventually taken off DM regimen due to multiple bouts of hypoglycemic reaction. She is originally residing from [place] and has event ually move here at [facility] recently so her daughter could supervise her. She has been having increasingly SOA since last week but no significant peripheral edema. Positive for orthopnea. No productive cough. She had HD Wednesday and Wednesday. She was initially at [facility] ED and eventually transferred here for HD. She is complaint with her medications. Upon admission she was noted very high BP and was started on cardene drip. Her BP remains elevated but better. Also noted with some CHF. Denies any AFIB but appears to have paroxysms per tele strip review while she was at [facility]. She has hx of CAD from over a yr ago hence ASA and plavix. She needs to establish cardiology care in the city. She does not use oxygen but appears to be needing it currently. She is wheezing no significant SOA currently . She continues to smoke with 5 cigarettes per day. Reported being tested for covid and was negative at [facility]. She does not use O2 at home. PAST MEDICAL HISTORY Cardiovascular: CAD, CHF, HTN, Hyperlipidemia, Valve insufficiency Pulmonary: COPD, Pulmonary embolus (remote no LE DVT) CENTRAL NERVOUS SYSTEM: CVA GI: Constipation Heme/Onc: Anemia NOS Hepatobiliary: No pertinent hx Psych: Anxiety Musculoskeletal: Osteoarthritis Rheumatologic: No pertinent hx Infectious disease: No pertinent hx ENT: Other (cataract) Renal/: Chronic renal failure Endocrine: Diabetes (hypoglycemia) Dermatology: No pertinent hx PAST SURGICAL HISTORY Past Surgical History: Cataract Removal, Other (AV HD fistula LA, PCI/MICHAEL x1 >1 yr ago) FAMILY HISTORY Family History: Coronary Artery Disease (siblings and mother) SOCIAL HISTORY Smoke: <1 pack per day ALCOHOL: none Drugs: None Lives: with Family (daughter) CURRENT MEDICATIONS CURRENT MEDICATIONS Current Medications Medications (Trade) Dose Ordered Sig/Leticia Route PRN Reason Start Time Stop Time Status Last Admin Dose Admin Cyanocobalamin (Vitamin B-12) 1,000 mcg 1X ONCE IM 07/05/19 08:15 07/05/19 08:16 DC 07/05/19 09:15 ALLERGIES ALLERGIES: Coded Allergies: Sulfa (Sulfonamide Antibiotics) (Verified Allergy, Severe, 07/03/19) iodine (Verified Allergy, Severe, 07/03/19) azithromycin (Verified Allergy, Intermediate, 07/03/19) carvedilol (Verified Adverse Reaction, Severe, 07/03/19) ROS Review of System 14 point ROS evaluated with pertinent positives noted per HPI PHYSICAL EXAM General: Alert, Oriented X3, Cooperative, mild distress HEENT: Atraumatic, Mucous membr. moist/pink Lungs: Other (diffuse wheeze) Heart: Regular rate (SR), Other (3/6 diastolic murmur to ERB) Abdomen: Soft Extremities: No cyanosis, No edema Skin: No breakdown, No significant lesion Neuro: Normal speech, Sensation intact Psych/Mental Status: Mental status NL, Mood NL MUSCULOSKELETAL: Osteoarthritic changes both hands VITALS/I&O VITALS/I&O: Vital Signs Date Time Temp Pulse Resp B/P (MAP) Pulse Ox O2 Delivery O2 Flow Rate FiO2 07/05/19 11:00 97.9 67 18 161/73 (102) 96 Nasal Cannula 2.0 97.9 I & O 07/04/19 07/04/19 07/05/19 15:00 23:00 07:00 Intake Total 0 ml 600 ml Output Total 50 ml 50 ml 50 ml Balance -50 ml -50 ml 550 ml LABS Lab: Laboratory Tests Test 07/04/19 17:07 07/04/19 21:15 07/05/19 07:58 07/05/19 11:58 Glucose (Fingerstick) 124 mg/dL (70-99) H 118 mg/dL (70-99) H 70 mg/dL (70-99) 86 mg/dL (70-99) ECHOCARDIOGRAM ECHOCARDIOGRAM <Conclusion> The left ventricular systolic function is normal. The Ejection Fraction is 55-60%. There is normal LV segmental wall motion. Transmitral Doppler flow pattern is Grade II-pseudonormal filling dynamics. Moderate aortic regurgitation. Mild mitral regurgitation. Mild tricuspid regurgitation. The PA pressure was estimated at 63 mmHg. There is no evidence of significant pericardial effusion. DATE: 07/04/19 0954 ASSESSMENT/PLAN ASSESSMENT/PLAN 1. Malignant HTN: poor control 2. AECOPD with continued tobaccoism: pulmonary following 3. Acute on chronic diastolic CHF: precipitated by above 4. Moderate to severe pulmonary HTN with underlying COPD 5. Valvular insufficiency: Moderate AI, mild MR/TR 6. Possible PAFIB: presently SR 7. CAD; x1 stent in [place] >1 yr ago 8. ESRD; approx started 2 yrs ago 9. Hx of DM2: taken off regimen due to hypoglycemia 10. Hx of anaphylaxis with coreg 11. Hx of hives with Iodine 12. Hx of remote PE 13. Macrocytic anemia Recommendations 1. Titrate off cardene. Will restart home hydralazine. Hydralazine IV PRN. DC home adalat and will change to norvasc. Start on imdur. Will check CMP and if K is normal then will restart home lisinopril. NO BB 2. Received lasix Fluid off loading per HD T-- 3. Restart home statin. Continue home ASA/plavix 4. Consider for MCOT and note AFIB burden. 5. Will need to establish cardiology care as an outpt. Will obtain cardiac records from [place] 6. Awaiting CT chest ALEIDA WEAVER MD 07/05/19 1614: CARDIAC CONSULT ASSESSMENT/PLAN ASSESSMENT/PLAN Patient seen and examined I agree with our nurse practitioners assessment as above. Malignant hypertension. Restarting home medications. Tapering off Cardene. Acute exacerbation of COPD. Continuing pulmonary medications. Heart failure. Contributing factors of tachycardia and end-stage renal disease. Medications as above. Renal evaluating. COPD PE with pulmonary hypertension. Medication adjustments as above. Continuing to monitor. Coronary artery disease. Previous stent. No chest pain. No acute EKG changes. End-stage renal disease. As per the renal service. Possible paroxysmal atrial fibrillation. Now in sinus rhythm. Continuing to monitor. Thank you for allowing us to participate in the care of your patient. CLARENCE SINGER POLE CLASSIFIER Jul 05, 2019 12:50 ALEIDA WEAVER MD Jul 05, 2019 16:14
--- NOTE | 2019-07-05 13:34 | CONS ---
DATE OF CONSULTATION: PULMONARY CONSULTATION ATTENDING PHYSICIAN: Gamal Storm MD REASON FOR CONSULTATION: Dyspnea. HISTORY OF PRESENT ILLNESS: The patient is a 79-year-old female who smoked for about 45+ years and still has not quit cigarettes. She recently moved from [place]. She was noted to have increasing dyspnea and was seen at [facility]. The patient was treated for congestive heart failure. She has been on dialysis for end-stage renal disease. The patient was brought into our hospital with complaint of increased shortness of breath with exertion. At rest, she is comfortable on 2 liters. She is not on home oxygen. She has a cough and starting to have some yellow sputum production. No obvious fever or chills. She was tested for COVID-19, negative at [facility]. No headaches, no nausea, vomiting, no diarrhea. No dysuria. She has history of stents. She states she is on Plavix. She also states that she had history of pulmonary embolism in the past, which was treated. No longer on any anticoagulation. PAST MEDICAL HISTORY: History of COPD, unknown FEV1, could be severe history of CAD, hypertension, history of stents, history of pulmonary embolism, history of CKD, on hemodialysis. PAST SURGICAL HISTORY: Appendectomy and stents. FAMILY HISTORY: Noncontributory to lungs. ALLERGIES: SULFA, AZITHROMYCIN, CARVEDILOL, AND IODINE. REVIEW OF SYSTEMS: Ten-point system obtained. Pertinent positives discussed in my history of present illness, otherwise noncontributory. All systems that were negative were reviewed as well. MEDICATIONS: Reviewed as listed in the MRAD. SOCIAL HISTORY: Smoked for at least 45 years, has not completely quit. Down to 5 cigarettes a day. PHYSICAL EXAMINATION: VITAL SIGNS: Reviewed. Blood pressure is in the 80s. Pulse oximetry is 96% on 2 liters, afebrile. HEENT: Sclerae nonicteric. NECK: Supple. LUNGS: With expiratory wheezes. CARDIOVASCULAR: Regular rate. ABDOMEN: Soft. EXTREMITIES: With no pitting edema. LABORATORY DATA: Reviewed. White cell count 7.7, hemoglobin 10.9, platelets are 234. BUN and creatinine 45 and 5.6. No chest x-ray was done yet. IMPRESSION: 1. Acute hypoxic respiratory failure with bronchospasm. Could be multifactorial and includes combination of acute on chronic diastolic heart failure versus chronic obstructive pulmonary disease exacerbation. 2. History of 45+ years of tobacco use, likely underlying severe chronic obstructive pulmonary disease. 3. Cough with yellow sputum production. Cannot exclude the possibility of pneumonia. 4. End-stage renal disease, on hemodialysis. 5. History of coronary artery disease and stents in the past. 6. History of pulmonary embolism in the past, was treated with anticoagulation. The patient is no longer on blood thinners. RECOMMENDATIONS: 1. Continue with present oxygen. 2. Continue with bronchodilators including DuoNebs and Pulmicort. 3. IV Lasix has been ordered to see if she makes any urine. 4. Noncontrast CT chest to better assess for etiology of her dyspnea. 5. We will add empiric antibiotic. 6. Follow Renal and Cardiology recommendations. 7. Continue Plavix for now. 8. Discussed with Cardiology and discussed with Dr. Lobo and we will follow along with you. GIAN HERNANDEZ MD DR: TOMAS/rocio JOB#: [id number] / [id number]
--- NOTE | 2019-07-05 14:08 | RAD ---
CT chest without contrast PQRS statement: CT scans at this facility use dose reduction including either automated exposure control, iterative reconstructions, and /or weight based radiation dosing via mA and kV modification when appropriate to reduce radiation dose to as low as reasonably achievable. HISTORY: Hypoxia. FINDINGS: 2 cm left renal upper pole fluid density cyst measuring 15 units extending outside the [id number]. Tortuosity and calcified plaque of the thoracic aorta and mild ectasia of the ascending thoracic aorta diameter 3.8 cm. Cardiomegaly. Extensive calcified plaque coronary arteries. Main pulmonary artery enlarged diameter of 1 cm. Esophagus unremarkable. No enlarged adenopathy evident with subcentimeter mediastinal lymph nodes present. At the left upper outer quadrant breast there is a 3 cm asymmetric density could be glandular asymmetry versus an ill-defined mass image 22. Miniscule subcentimeter dependent right pleural effusion along the posterior diaphragm. There is a mild to moderate left pleural effusion posteriorly maximum thickness at the lower lobe measuring 4.5 cm. There is mild volume loss due to passive atelectasis of the basilar left lower lobe from the pleural effusion associated with consolidation and air bronchogram from atelectasis, superimposed lobar pneumonia is not excluded. Linear nodular subpleural densities of the right middle and lower lobes and right upper lobe anterior segment could represent extensive areas of atelectasis versus some areas of chronic scarring, no bronchial occlusion or bronchial cut off to suggest an obstructing lesion. There appears be collapse and atelectasis of most of the right middle lobe without bronchial occlusion or cut off. Bones are unremarkable. IMPRESSION: 1. Mild-moderate left pleural effusion with volume loss and atelectasis of the left lower lobe with consolidation due to extensive atelectasis versus superimposed lobar pneumonia. 2. Subpleural linear nodular densities of the right middle and lower lobes typical of atelectasis or scarring with collapse of most of the right middle lobe from atelectasis. No discrete mass lesion or bronchial occlusion/cut off to suggest airway obstruction. 3. Follow-up CT imaging in 3-6 months is advised to document stability of the linear scarring/atelectasis at the right lung and to document that the volume loss and opacity of the left lower lobe resolves over time to exclude the possibility of underlying neoplastic lesion. 4. 3 cm focal density of the left upper outer breast which may be glandular asymmetry versus a mass. Consider further assessment with mammography and possibly breast sonography. Electronically signed by: Dov Moody MD (07/05/2019 2:05 PM) [id number]
--- NOTE | 2019-07-05 14:17 | EKG ---
[facility] [address] [place] [address] Test Date: 2019-07-05 Test Time: 14:15:32 Pat Name: NISH RENO Department: Room: 206 Gender: F Box Office Manager: ABRAHAM : 1940 Requested By: CLARENCE SINGER Order Number: [id number] Reading MD: Gary Phillips Measurements Intervals [place] Rate: 66 P: [place]: QRS: 28 QRSD: 90 T: -29 QT: 416 QTc: 438 Interpretive Statements SINUS RHYTHM NONSPECIFIC ST-T WAVE CHANGES. Electronically Signed On 07-07-2019 10:05:43 CDT by Gary Phillips
--- NOTE | 2019-07-05 14:21 | NUR ---
SS following up with discharge planning. SS reviewed pt chart and discussed with pt RN. Pt is from home in [place], [place]. Pt is currently requiring oxygen. Per pt's RN, pt not medically stable for discharge at this time. SS will continue to follow for discharge planning.
[2019-07-05] MEDS: ISOSORBIDE MONONITRATE ER 30 MG TAB.ER.24H PO SCH (15:04)
[2019-07-05] MEDS: cefTRIAXone IV Push 1 GM VIAL. IVP SCH (15:05)
[2019-07-05] MEDS ORDERED: hydrALAZINE 20 MG/ML VIAL. IVP PRN (15:15)
[2019-07-05 15:20] LABS: CALCIUM 8.4 mg/dL (8.5-10.1); CREATININE 4.6 mg/dL (0.6-1.0); GFR 9.2; POTASSIUM 4.5 mmol/L (3.5-5.1)
[2019-07-05 15:27] LABS: ALBUMIN 3.5 g/dL (3.4-5.0); ALBUMIN/GLOBULIN RATIO 1.1 (1.0-1.7); TOTAL BILIRUBIN 0.4 mg/dL (0.2-1.0); TOTAL PROTEIN 6.8 g/dL (6.4-8.2)
--- NOTE | 2019-07-05 16:03 | NUR ---
Wound Care: Patient seen per wound care consult. Patient has skin tear to right forearm patient states from her dog. Wound cleansed, assessed, and measured. Recommendations for Xeroform gauze and foam dressing. Dressing applied. No other wounds noted upon complete head to toe assessment. Dressing change instructions left in room. Patient back in chair and call light in reach. Patient educated on turning. Will follow patient regarding wound care.
[2019-07-05] MEDS: IPRATRPIUM/ALBUTEROL 0.5/2.5MG 3 ML NEBU. NEB SCH ×2 (16:20→20:00)
[2019-07-05] MEDS: LISINOPRIL 20 MG TABLET PO SCH (17:02)
[2019-07-05] MEDS: BUDESONIDE 0.5 MG/2 ML NEBU. NEB SCH (20:00)
[2019-07-05] MEDS: LACTOBACILLUS RHAMNOSUS GG 1 CAPSULE. PO SCH (20:41)
[2019-07-05] MEDS: traZODone 50 MG TABLET. PO PRN (20:42)
[2019-07-05] MEDS: ATORVASTATIN CALCIUM 20 MG TABLET PO SCH (20:45)
[2019-07-06 02:26] VITALS: BP 197/82
[2019-07-06] MEDS: hydrALAZINE 20 MG/ML VIAL. IVP PRN ×2 (02:42→20:37)
[2019-07-06 04:59] LABS: BASO % 0 % (0-3); EOS # 0.2 x10^3/uL (0.0-0.7); EOS % 3 % (0-3); HEMATOCRIT 30.5 % (36.0-47.0); HEMOGLOBIN 9.9 g/dL (12.0-15.5); LYMPH # 1.1 x10^3/uL (1.0-4.8); LYMPH % 17 % (24-48); MEAN CORPUSCULAR HEMOGLOBIN 34 pg (25-35); MEAN CORPUSCULAR HGB CONC 33 g/dL (31-37); MEAN CORPUSCULAR VOLUME 106 fL (79-100); MONO # 0.5 x10^3/uL (0.0-1.1); MONO % 8 % (0-9); NEUT # 4.5 x10^3/uL (1.8-7.7); NEUT % 72 % (31-73); PLATELET COUNT 181 x10^3/uL (140-400); RED BLOOD COUNT 2.89 x10^6/uL (3.50-5.40); WHITE BLOOD COUNT 6.3 x10^3/uL (4.0-11.0)
[2019-07-06 05:12] LABS: ALBUMIN 2.9 g/dL (3.4-5.0); CALCIUM 7.8 mg/dL (8.5-10.1); CREATININE 5.2 mg/dL (0.6-1.0); POTASSIUM 4.5 mmol/L (3.5-5.1)
[2019-07-06 07:00] VITALS: BP 186/81
[2019-07-06] MEDS: BUDESONIDE 0.5 MG/2 ML NEBU. NEB SCH ×2 (08:00→20:05)
[2019-07-06] MEDS: IPRATRPIUM/ALBUTEROL 0.5/2.5MG 3 ML NEBU. NEB SCH ×4 (08:00→20:05)
[2019-07-06] MEDS: ASPIRIN CHEWABLE 81 MG TABLET. PO SCH (08:09)
[2019-07-06] MEDS: CYANOCOBALAMIN (VITAMIN B-12) 1,000 MCG TABLET. PO SCH (08:09)
[2019-07-06] MEDS: CLOPIDOGREL BISULFATE 75 MG TABLET PO SCH (08:10)
[2019-07-06] MEDS: LACTOBACILLUS RHAMNOSUS GG 1 CAPSULE. PO SCH ×2 (08:10→20:34)
[2019-07-06] MEDS ORDERED: IV NORMAL SALINE 1000ML BAG 1,000 ML IV PRN ×2 (08:12)
[2019-07-06] MEDS ORDERED: diphenhydrAMINE 50 MG/ML VIAL IV PRN ×2 (08:15)
[2019-07-06] MEDS ORDERED: DIALYSIS PATIENT. MC PRN (08:15)
[2019-07-06] MEDS ORDERED: LIDOCAINE 1% PF 2 ML VIAL. ONE ×2 (08:55→09:00)
--- NOTE | 2019-07-06 09:31 | PDOC ---
PULMONARY PROGRESS NOTES Subjective feels better undergoing HD Vitals Vital Signs Date Time Temp Pulse Resp B/P (MAP) Pulse Ox O2 Delivery O2 Flow Rate FiO2 07/06/19 08:03 97 Nasal Cannula 2.0 07/06/19 07:00 98.6 68 16 186/81 (116) 98.6 General: Alert, No acute distress Lungs: Other (decrease bs) Cardiovascular: S1 Abdomen: Soft Neuro Exam: Alert Extremities: Other (trace edema) Labs Laboratory Tests Test 07/04/19 17:07 07/04/19 21:15 07/05/19 07:58 07/05/19 11:58 Glucose (Fingerstick) 124 mg/dL (70-99) 118 mg/dL (70-99) 70 mg/dL (70-99) 86 mg/dL (70-99) Test 07/05/19 14:35 07/05/19 16:57 07/05/19 20:40 07/06/19 03:55 Sodium Level 141 mmol/L (136-145) 143 mmol/L (136-145) Potassium Level 4.5 mmol/L (3.5-5.1) 4.5 mmol/L (3.5-5.1) Chloride Level 102 mmol/L (98-107) 105 mmol/L (98-107) Carbon Dioxide Level 31 mmol/L (21-32) 30 mmol/L (21-32) Anion Gap 8 (6-14) 8 (6-14) Blood Urea Nitrogen 35 mg/dL (7-20) 49 mg/dL (7-20) Creatinine 4.6 mg/dL (0.6-1.0) 5.2 mg/dL (0.6-1.0) Estimated GFR (Cockcroft-Gault) 9.2 8.0 BUN/Creatinine Ratio 8 (6-20) Glucose Level 132 mg/dL (70-99) 84 mg/dL (70-99) Calcium Level 8.4 mg/dL (8.5-10.1) 7.8 mg/dL (8.5-10.1) Magnesium Level 1.9 mg/dL (1.8-2.4) Total Bilirubin 0.4 mg/dL (0.2-1.0) Aspartate Amino Transf (AST/SGOT) 27 U/L (15-37) Alanine Aminotransferase (ALT/SGPT) 16 U/L (14-59) Alkaline Phosphatase 86 U/L (46-116) Total Protein 6.8 g/dL (6.4-8.2) Albumin 3.5 g/dL (3.4-5.0) 2.9 g/dL (3.4-5.0) Albumin/Globulin Ratio 1.1 (1.0-1.7) Procalcitonin 0.26 ng/mL (0.00-0.10) Thyroid Stimulating Hormone (TSH) 2.289 uIU/mL (0.358-3.74) Glucose (Fingerstick) 86 mg/dL (70-99) 106 mg/dL (70-99) White Blood Count 6.3 x10^3/uL (4.0-11.0) Red Blood Count 2.89 x10^6/uL (3.50-5.40) Hemoglobin 9.9 g/dL (12.0-15.5) Hematocrit 30.5 % (36.0-47.0) Mean Corpuscular Volume 106 fL (79-100) Mean Corpuscular Hemoglobin 34 pg (25-35) Mean Corpuscular Hemoglobin Concent 33 g/dL (31-37) Red Cell Distribution Width 15.0 % (11.5-14.5) Platelet Count 181 x10^3/uL (140-400) Neutrophils (%) (Auto) 72 % (31-73) Lymphocytes (%) (Auto) 17 % (24-48) Monocytes (%) (Auto) 8 % (0-9) Eosinophils (%) (Auto) 3 % (0-3) Basophils (%) (Auto) 0 % (0-3) Neutrophils # (Auto) 4.5 x10^3/uL (1.8-7.7) Lymphocytes # (Auto) 1.1 x10^3/uL (1.0-4.8) Monocytes # (Auto) 0.5 x10^3/uL (0.0-1.1) Eosinophils # (Auto) 0.2 x10^3/uL (0.0-0.7) Basophils # (Auto) 0.0 x10^3/uL (0.0-0.2) Phosphorus Level 5.0 mg/dL (2.6-4.7) Test 07/06/19 07:33 Glucose (Fingerstick) 83 mg/dL (70-99) Laboratory Tests Test 07/05/19 11:58 07/05/19 14:35 07/05/19 16:57 07/05/19 20:40 Glucose (Fingerstick) 86 mg/dL (70-99) 86 mg/dL (70-99) 106 mg/dL (70-99) Sodium Level 141 mmol/L (136-145) Potassium Level 4.5 mmol/L (3.5-5.1) Chloride Level 102 mmol/L (98-107) Carbon Dioxide Level 31 mmol/L (21-32) Anion Gap 8 (6-14) Blood Urea Nitrogen 35 mg/dL (7-20) Creatinine 4.6 mg/dL (0.6-1.0) Estimated GFR (Cockcroft-Gault) 9.2 BUN/Creatinine Ratio 8 (6-20) Glucose Level 132 mg/dL (70-99) Calcium Level 8.4 mg/dL (8.5-10.1) Magnesium Level 1.9 mg/dL (1.8-2.4) Total Bilirubin 0.4 mg/dL (0.2-1.0) Aspartate Amino Transf (AST/SGOT) 27 U/L (15-37) Alanine Aminotransferase (ALT/SGPT) 16 U/L (14-59) Alkaline Phosphatase 86 U/L (46-116) Total Protein 6.8 g/dL (6.4-8.2) Albumin 3.5 g/dL (3.4-5.0) Albumin/Globulin Ratio 1.1 (1.0-1.7) Procalcitonin 0.26 ng/mL (0.00-0.10) Thyroid Stimulating Hormone (TSH) 2.289 uIU/mL (0.358-3.74) Test 07/06/19 03:55 07/06/19 07:33 White Blood Count 6.3 x10^3/uL (4.0-11.0) Red Blood Count 2.89 x10^6/uL (3.50-5.40) Hemoglobin 9.9 g/dL (12.0-15.5) Hematocrit 30.5 % (36.0-47.0) Mean Corpuscular Volume 106 fL (79-100) Mean Corpuscular Hemoglobin 34 pg (25-35) Mean Corpuscular Hemoglobin Concent 33 g/dL (31-37) Red Cell Distribution Width 15.0 % (11.5-14.5) Platelet Count 181 x10^3/uL (140-400) Neutrophils (%) (Auto) 72 % (31-73) Lymphocytes (%) (Auto) 17 % (24-48) Monocytes (%) (Auto) 8 % (0-9) Eosinophils (%) (Auto) 3 % (0-3) Basophils (%) (Auto) 0 % (0-3) Neutrophils # (Auto) 4.5 x10^3/uL (1.8-7.7) Lymphocytes # (Auto) 1.1 x10^3/uL (1.0-4.8) Monocytes # (Auto) 0.5 x10^3/uL (0.0-1.1) Eosinophils # (Auto) 0.2 x10^3/uL (0.0-0.7) Basophils # (Auto) 0.0 x10^3/uL (0.0-0.2) Sodium Level 143 mmol/L (136-145) Potassium Level 4.5 mmol/L (3.5-5.1) Chloride Level 105 mmol/L (98-107) Carbon Dioxide Level 30 mmol/L (21-32) Anion Gap 8 (6-14) Blood Urea Nitrogen 49 mg/dL (7-20) Creatinine 5.2 mg/dL (0.6-1.0) Estimated GFR (Cockcroft-Gault) 8.0 Glucose Level 84 mg/dL (70-99) Calcium Level 7.8 mg/dL (8.5-10.1) Phosphorus Level 5.0 mg/dL (2.6-4.7) Albumin 2.9 g/dL (3.4-5.0) Glucose (Fingerstick) 83 mg/dL (70-99) Medications Active Scripts Medications Dose Route/Sig Max Daily Dose Days Date Category Children's Aspirin (Aspirin) 81 Mg Tab.chew 1 Tab PO DAILY 30 07/03/19 Reported Clopidogrel (Clopidogrel Bisulfate) 75 Mg Tablet 1 Tab PO DAILY 07/03/19 Reported Proair Hfa (Albuterol Sulfate) 8.5 Gm Hfa.aer.ad 2 Puff IH PRN Q4-6HRS PRN 21 07/03/19 Reported Atorvastatin Calcium 80 Mg Tablet 20 Mg PO QHS 07/03/19 Reported Lisinopril 40 Mg Tablet 1 Tab PO DAILY 07/03/19 Reported Nifedipine Er (Nifedipine) 30 Mg Tablet.er 3 Tab PO BID 07/03/19 Reported Hydralazine Hcl 50 Mg Tablet 1.5 Tab PO TID 07/03/19 Reported NICODERM CQ 21mg (Nicotine) 1 Each Patch.td24 1 Patch TP DAILY PRN 07/03/[address] CHEST 1. Mild-moderate left pleural effusion with volume loss and atelectasis of the left lower lobe with consolidation due to extensive atelectasis versus superimposed lobar pneumonia. 2. Subpleural linear nodular densities of the right middle and lower lobes typical of atelectasis or scarring with collapse of most of the right middle lobe from atelectasis. No discrete mass lesion or bronchial occlusion/cut off to suggest airway obstruction. 3. Follow-up CT imaging in 3-6 months is advised to document stability of the linear scarring/atelectasis at the right lung and to document that the volume loss and opacity of the left lower lobe resolves over time to exclude the possibility of underlying neoplastic lesion. 4. 3 cm focal density of the left upper outer breast which may be glandular asymmetry versus a mass. Consider further assessment with mammography and possibly breast sonography. Impression . 1. Acute hypoxic respiratory failure with bronchospasm. Could be multifactorial and includes combination of acute on chronic diastolic heart failure/ chronic obstructive pulmonary disease exacerbation. 2. History of 45+ years of tobacco use, likely underlying severe chronic obstructive pulmonary disease. 3. Cough with yellow sputum production. Cannot exclude the possibility of pneumonia. 4. End-stage renal disease, on hemodialysis. 5. History of coronary artery disease and stents in the past. 6. History of pulmonary embolism in the past, was treated with anticoagulation. The patient is no longer on blood thinners. 7. ABNORMAL CT CHEST Plan . RECOMMENDATIONS: 1. Continue with present oxygen. 2. Continue with bronchodilators including DuoNebs and Pulmicort. 3. HD with UF 4. CT chest reviewed. LLL effusion/ atelectasis/ Rt lung patchy opacities, RML atelectasis., repeat ct in 6-8 weeks 5. empiric antibiotic. 6. Follow Renal and Cardiology recommendations. 7. Continue Plavix for now. 8. Discussed with Cardiology and discussed with Dr. Lobo 9. ? Breast mass vs cyst. will leave up to PCP for f/u GIAN HERNANDEZ MD Jul 06, 2019 09:31
--- NOTE | 2019-07-06 10:23 | PDOC ---
CLARENCE SINGER HEAD OF DESIGN 07/06/19 1023: CARDIO Progress Notes Date and Time Date of Service 07/06/2019 Time of Evaluation 1000 Subjective Subjective: No Chest Pain, No shortness of breath, No Palpitations Vitals Vitals Vital Signs Date Time Temp Pulse Resp B/P (MAP) Pulse Ox O2 Delivery O2 Flow Rate FiO2 07/06/19 08:03 97 Nasal Cannula 2.0 07/06/19 07:00 98.6 68 16 186/81 (116) 98.6 Weight Weight [ ] Input and Output Intake and Output Intake and Output 07/06/19 07:00 Intake Total 1460 ml Output Total 100 ml Balance 1360 ml Intake Oral 1460 ml Output Urine Total 100 ml Laboratory Labs Laboratory Tests Test 07/05/19 11:58 07/05/19 14:35 07/05/19 16:57 07/05/19 20:40 Glucose (Fingerstick) 86 mg/dL (70-99) 86 mg/dL (70-99) 106 mg/dL (70-99) Sodium Level 141 mmol/L (136-145) Potassium Level 4.5 mmol/L (3.5-5.1) Chloride Level 102 mmol/L (98-107) Carbon Dioxide Level 31 mmol/L (21-32) Anion Gap 8 (6-14) Blood Urea Nitrogen 35 mg/dL (7-20) Creatinine 4.6 mg/dL (0.6-1.0) Estimated GFR (Cockcroft-Gault) 9.2 BUN/Creatinine Ratio 8 (6-20) Glucose Level 132 mg/dL (70-99) Calcium Level 8.4 mg/dL (8.5-10.1) Magnesium Level 1.9 mg/dL (1.8-2.4) Total Bilirubin 0.4 mg/dL (0.2-1.0) Aspartate Amino Transf (AST/SGOT) 27 U/L (15-37) Alanine Aminotransferase (ALT/SGPT) 16 U/L (14-59) Alkaline Phosphatase 86 U/L (46-116) Total Protein 6.8 g/dL (6.4-8.2) Albumin 3.5 g/dL (3.4-5.0) Albumin/Globulin Ratio 1.1 (1.0-1.7) Procalcitonin 0.26 ng/mL (0.00-0.10) Thyroid Stimulating Hormone (TSH) 2.289 uIU/mL (0.358-3.74) Test 07/06/19 03:55 07/06/19 07:33 White Blood Count 6.3 x10^3/uL (4.0-11.0) Red Blood Count 2.89 x10^6/uL (3.50-5.40) Hemoglobin 9.9 g/dL (12.0-15.5) Hematocrit 30.5 % (36.0-47.0) Mean Corpuscular Volume 106 fL (79-100) Mean Corpuscular Hemoglobin 34 pg (25-35) Mean Corpuscular Hemoglobin Concent 33 g/dL (31-37) Red Cell Distribution Width 15.0 % (11.5-14.5) Platelet Count 181 x10^3/uL (140-400) Neutrophils (%) (Auto) 72 % (31-73) Lymphocytes (%) (Auto) 17 % (24-48) Monocytes (%) (Auto) 8 % (0-9) Eosinophils (%) (Auto) 3 % (0-3) Basophils (%) (Auto) 0 % (0-3) Neutrophils # (Auto) 4.5 x10^3/uL (1.8-7.7) Lymphocytes # (Auto) 1.1 x10^3/uL (1.0-4.8) Monocytes # (Auto) 0.5 x10^3/uL (0.0-1.1) Eosinophils # (Auto) 0.2 x10^3/uL (0.0-0.7) Basophils # (Auto) 0.0 x10^3/uL (0.0-0.2) Sodium Level 143 mmol/L (136-145) Potassium Level 4.5 mmol/L (3.5-5.1) Chloride Level 105 mmol/L (98-107) Carbon Dioxide Level 30 mmol/L (21-32) Anion Gap 8 (6-14) Blood Urea Nitrogen 49 mg/dL (7-20) Creatinine 5.2 mg/dL (0.6-1.0) Estimated GFR (Cockcroft-Gault) 8.0 Glucose Level 84 mg/dL (70-99) Calcium Level 7.8 mg/dL (8.5-10.1) Phosphorus Level 5.0 mg/dL (2.6-4.7) Albumin 2.9 g/dL (3.4-5.0) Glucose (Fingerstick) 83 mg/dL (70-99) Review of Systems Constitutional: yes: alert, oriented Ears/Nose/Throat: Yes: no symptom reported Eyes: Yes: no symptom reported Pulmonary: Yes dyspnea Cardiovascular: Yes no symptom reported Gastrointestional: Yes: no symptom reported Genitourinary: Yes: no symptom reported Musculoskeletal: Yes: muscle stiffness Skin: Yes no symptom reported Psychiatric/Neurological: Yes: no symptom reported Endocrine: Yes: no symptom reported Physical Exam HEENT: Neck Supple W Full Motion Chest: Symmetric LUNGS: Other (diminished bases, basilar wheeze) Heart: S1S2, RRR (SR) Abdomen: Soft N/T Extremities: No Edema, No Calf Tenderness Neurology: alert, oriented, follow commands Assessment Assessment 1. Malignant HTN: remains labile 2. AECOPD with continued tobaccoism: pulmonary following. wheeze better 3. Acute on chronic diastolic CHF: precipitated by above. Compensated 4. Moderate to severe pulmonary HTN with underlying COPD 5. Valvular insufficiency: Moderate AI, mild MR/TR 6. PAFIB: new. noted with brief paroxysms. presently SR 7. CAD; x1 stent in [place] >1 yr ago 8. ESRD; approx started 2 yrs ago 9. Hx of DM2: taken off regimen due to hypoglycemia 10. Hx of anaphylaxis with coreg 11. Hx of hives with Iodine 12. Hx of remote PE 13. Macrocytic anemia Recommendations 1. Continue hydralazine PO. Hydralazine IV PRN. Continue norvasc/imdur/lisin opril. Adjust per BP trend post HD, will consider adding clonidine if remains high. NO BB 2. Fluid off loading per HD T-TH-S 3. Restart home statin. Continue home ASA/plavix 4. Consider for MCOT and note AFIB burden. 5. Will need to establish cardiology care as an outpt. Awaiting cardiac records from [place]. Pt would rather have a benefits specialist recruiter close to her daughter's home at [place], discussed with RN and will talk to daughter. ALEIDA WEAVER MD 07/06/19 9523: CARDIO Progress Notes Assessment Assessment Patient seen and evaluated Malignant HTN: Improving. Continuing medications and will adjust as needed. Remains labile AECOPD with continued tobaccoism: Symptoms improved. Followed by pulmonary. Pulmonary following. wheeze better Acute on chronic diastolic CHF: Improved. Continuing blood pressure control. Precipitated by above. Compensated Moderate to severe pulmonary HTN with underlying COPD PAFIB: new. noted with brief paroxysms. presently SR CAD; x1 stent in [place] >1 yr ago ESRD; dialysis as per the renal service. CLARENCE SINGER APRN Jul 06, 2019 10:23 ALEIDA WEAVER MD Jul 06, 2019 15:45
--- NOTE | 2019-07-06 11:06 | PDOC ---
PROGRESS NOTES Chief Complaint Chief Complaint impression Dyspnea which seems to be volume overload ESRD on HD Uncontrolled hypertension, hypertensive urgency as per outside facility COPD history of depression History of CAD with old [place] as per records, currently asymptomatic 07/05 d/w RN History of Present Illness History of Present Illness Ms Coburn is a 79 year old female w/ PMHx HTN, ESRD TuThSa, COPD, CAD who recently moved from [place] to [place], [place] who was in her usual state of health until 07/01/2019 when she started noticing dyspnea. She denies sick contacts, no sputum production, no pleurisy has been reported nevertheless she noticed dyspnea especially on exertion. She denies dietary transgression no excess fluid and in fact has modified her lifestyle significantly. Stable dry weight of 62kg. Did have desaturations less than 89%, placed on 2 liters of oxygen she does not seem to have excess work of breathing nevertheless she does have evidence of Oscar b lines on x ray done at outside facility. She probably has volume overload and her BP is uncontrolled as per the outside facility report. 07/03: BNP > 35K. Still on O2. Seen on dialysis. Noted with goal 3300 UF at dialysis. No chest pain. 07/05 LESS short of breath with yellow sputum today. NO Wheezing. Feeling somewhat better after dialysis, has a good appetite. Vitals Vitals Vital Signs Date Time Temp Pulse Resp B/P (MAP) Pulse Ox O2 Delivery O2 Flow Rate FiO2 07/06/19 08:05 Nasal Cannula 2.0 07/06/19 08:03 97 07/06/19 07:00 98.6 68 16 186/81 (116) 98.6 Physical Exam General: Alert, Oriented X3, Cooperative, No acute distress Heart: Regular rate (SR), Other (3/6 diastolic murmur to ERB) Lungs: Clear, Other (decrease bs) Abdomen: Soft Extremities: No cyanosis, No edema Skin: No breakdown, No significant lesion Labs LABS Laboratory Tests Test 07/05/19 11:58 07/05/19 14:35 07/05/19 16:57 07/05/19 20:40 Glucose (Fingerstick) 86 mg/dL (70-99) 86 mg/dL (70-99) 106 mg/dL (70-99) Sodium Level 141 mmol/L (136-145) Potassium Level 4.5 mmol/L (3.5-5.1) Chloride Level 102 mmol/L (98-107) Carbon Dioxide Level 31 mmol/L (21-32) Anion Gap 8 (6-14) Blood Urea Nitrogen 35 mg/dL (7-20) Creatinine 4.6 mg/dL (0.6-1.0) Estimated GFR (Cockcroft-Gault) 9.2 BUN/Creatinine Ratio 8 (6-20) Glucose Level 132 mg/dL (70-99) Calcium Level 8.4 mg/dL (8.5-10.1) Magnesium Level 1.9 mg/dL (1.8-2.4) Total Bilirubin 0.4 mg/dL (0.2-1.0) Aspartate Amino Transf (AST/SGOT) 27 U/L (15-37) Alanine Aminotransferase (ALT/SGPT) 16 U/L (14-59) Alkaline Phosphatase 86 U/L (46-116) Total Protein 6.8 g/dL (6.4-8.2) Albumin 3.5 g/dL (3.4-5.0) Albumin/Globulin Ratio 1.1 (1.0-1.7) Procalcitonin 0.26 ng/mL (0.00-0.10) Thyroid Stimulating Hormone (TSH) 2.289 uIU/mL (0.358-3.74) Test 07/06/19 03:55 07/06/19 07:33 White Blood Count 6.3 x10^3/uL (4.0-11.0) Red Blood Count 2.89 x10^6/uL (3.50-5.40) Hemoglobin 9.9 g/dL (12.0-15.5) Hematocrit 30.5 % (36.0-47.0) Mean Corpuscular Volume 106 fL (79-100) Mean Corpuscular Hemoglobin 34 pg (25-35) Mean Corpuscular Hemoglobin Concent 33 g/dL (31-37) Red Cell Distribution Width 15.0 % (11.5-14.5) Platelet Count 181 x10^3/uL (140-400) Neutrophils (%) (Auto) 72 % (31-73) Lymphocytes (%) (Auto) 17 % (24-48) Monocytes (%) (Auto) 8 % (0-9) Eosinophils (%) (Auto) 3 % (0-3) Basophils (%) (Auto) 0 % (0-3) Neutrophils # (Auto) 4.5 x10^3/uL (1.8-7.7) Lymphocytes # (Auto) 1.1 x10^3/uL (1.0-4.8) Monocytes # (Auto) 0.5 x10^3/uL (0.0-1.1) Eosinophils # (Auto) 0.2 x10^3/uL (0.0-0.7) Basophils # (Auto) 0.0 x10^3/uL (0.0-0.2) Sodium Level 143 mmol/L (136-145) Potassium Level 4.5 mmol/L (3.5-5.1) Chloride Level 105 mmol/L (98-107) Carbon Dioxide Level 30 mmol/L (21-32) Anion Gap 8 (6-14) Blood Urea Nitrogen 49 mg/dL (7-20) Creatinine 5.2 mg/dL (0.6-1.0) Estimated GFR (Cockcroft-Gault) 8.0 Glucose Level 84 mg/dL (70-99) Calcium Level 7.8 mg/dL (8.5-10.1) Phosphorus Level 5.0 mg/dL (2.6-4.7) Albumin 2.9 g/dL (3.4-5.0) Glucose (Fingerstick) 83 mg/dL (70-99) Comment Review of Relevant I have reviewed the following items harish (where applicable) has been applied. Labs Laboratory Tests Test 07/04/19 17:07 07/04/19 21:15 07/05/19 07:58 07/05/19 11:58 Glucose (Fingerstick) 124 mg/dL (70-99) 118 mg/dL (70-99) 70 mg/dL (70-99) 86 mg/dL (70-99) Test 07/05/19 14:35 07/05/19 16:57 07/05/19 20:40 07/06/19 03:55 Sodium Level 141 mmol/L (136-145) 143 mmol/L (136-145) Potassium Level 4.5 mmol/L (3.5-5.1) 4.5 mmol/L (3.5-5.1) Chloride Level 102 mmol/L (98-107) 105 mmol/L (98-107) Carbon Dioxide Level 31 mmol/L (21-32) 30 mmol/L (21-32) Anion Gap 8 (6-14) 8 (6-14) Blood Urea Nitrogen 35 mg/dL (7-20) 49 mg/dL (7-20) Creatinine 4.6 mg/dL (0.6-1.0) 5.2 mg/dL (0.6-1.0) Estimated GFR (Cockcroft-Gault) 9.2 8.0 BUN/Creatinine Ratio 8 (6-20) Glucose Level 132 mg/dL (70-99) 84 mg/dL (70-99) Calcium Level 8.4 mg/dL (8.5-10.1) 7.8 mg/dL (8.5-10.1) Magnesium Level 1.9 mg/dL (1.8-2.4) Total Bilirubin 0.4 mg/dL (0.2-1.0) Aspartate Amino Transf (AST/SGOT) 27 U/L (15-37) Alanine Aminotransferase (ALT/SGPT) 16 U/L (14-59) Alkaline Phosphatase 86 U/L (46-116) Total Protein 6.8 g/dL (6.4-8.2) Albumin 3.5 g/dL (3.4-5.0) 2.9 g/dL (3.4-5.0) Albumin/Globulin Ratio 1.1 (1.0-1.7) Procalcitonin 0.26 ng/mL (0.00-0.10) Thyroid Stimulating Hormone (TSH) 2.289 uIU/mL (0.358-3.74) Glucose (Fingerstick) 86 mg/dL (70-99) 106 mg/dL (70-99) White Blood Count 6.3 x10^3/uL (4.0-11.0) Red Blood Count 2.89 x10^6/uL (3.50-5.40) Hemoglobin 9.9 g/dL (12.0-15.5) Hematocrit 30.5 % (36.0-47.0) Mean Corpuscular Volume 106 fL (79-100) Mean Corpuscular Hemoglobin 34 pg (25-35) Mean Corpuscular Hemoglobin Concent 33 g/dL (31-37) Red Cell Distribution Width 15.0 % (11.5-14.5) Platelet Count 181 x10^3/uL (140-400) Neutrophils (%) (Auto) 72 % (31-73) Lymphocytes (%) (Auto) 17 % (24-48) Monocytes (%) (Auto) 8 % (0-9) Eosinophils (%) (Auto) 3 % (0-3) Basophils (%) (Auto) 0 % (0-3) Neutrophils # (Auto) 4.5 x10^3/uL (1.8-7.7) Lymphocytes # (Auto) 1.1 x10^3/uL (1.0-4.8) Monocytes # (Auto) 0.5 x10^3/uL (0.0-1.1) Eosinophils # (Auto) 0.2 x10^3/uL (0.0-0.7) Basophils # (Auto) 0.0 x10^3/uL (0.0-0.2) Phosphorus Level 5.0 mg/dL (2.6-4.7) Test 07/06/19 07:33 Glucose (Fingerstick) 83 mg/dL (70-99) Laboratory Tests Test 07/05/19 11:58 07/05/19 14:35 07/05/19 16:57 07/05/19 20:40 Glucose (Fingerstick) 86 mg/dL (70-99) 86 mg/dL (70-99) 106 mg/dL (70-99) Sodium Level 141 mmol/L (136-145) Potassium Level 4.5 mmol/L (3.5-5.1) Chloride Level 102 mmol/L (98-107) Carbon Dioxide Level 31 mmol/L (21-32) Anion Gap 8 (6-14) Blood Urea Nitrogen 35 mg/dL (7-20) Creatinine 4.6 mg/dL (0.6-1.0) Estimated GFR (Cockcroft-Gault) 9.2 BUN/Creatinine Ratio 8 (6-20) Glucose Level 132 mg/dL (70-99) Calcium Level 8.4 mg/dL (8.5-10.1) Magnesium Level 1.9 mg/dL (1.8-2.4) Total Bilirubin 0.4 mg/dL (0.2-1.0) Aspartate Amino Transf (AST/SGOT) 27 U/L (15-37) Alanine Aminotransferase (ALT/SGPT) 16 U/L (14-59) Alkaline Phosphatase 86 U/L (46-116) Total Protein 6.8 g/dL (6.4-8.2) Albumin 3.5 g/dL (3.4-5.0) Albumin/Globulin Ratio 1.1 (1.0-1.7) Procalcitonin 0.26 ng/mL (0.00-0.10) Thyroid Stimulating Hormone (TSH) 2.289 uIU/mL (0.358-3.74) Test 07/06/19 03:55 07/06/19 07:33 White Blood Count 6.3 x10^3/uL (4.0-11.0) Red Blood Count 2.89 x10^6/uL (3.50-5.40) Hemoglobin 9.9 g/dL (12.0-15.5) Hematocrit 30.5 % (36.0-47.0) Mean Corpuscular Volume 106 fL (79-100) Mean Corpuscular Hemoglobin 34 pg (25-35) Mean Corpuscular Hemoglobin Concent 33 g/dL (31-37) Red Cell Distribution Width 15.0 % (11.5-14.5) Platelet Count 181 x10^3/uL (140-400) Neutrophils (%) (Auto) 72 % (31-73) Lymphocytes (%) (Auto) 17 % (24-48) Monocytes (%) (Auto) 8 % (0-9) Eosinophils (%) (Auto) 3 % (0-3) Basophils (%) (Auto) 0 % (0-3) Neutrophils # (Auto) 4.5 x10^3/uL (1.8-7.7) Lymphocytes # (Auto) 1.1 x10^3/uL (1.0-4.8) Monocytes # (Auto) 0.5 x10^3/uL (0.0-1.1) Eosinophils # (Auto) 0.2 x10^3/uL (0.0-0.7) Basophils # (Auto) 0.0 x10^3/uL (0.0-0.2) Sodium Level 143 mmol/L (136-145) Potassium Level 4.5 mmol/L (3.5-5.1) Chloride Level 105 mmol/L (98-107) Carbon Dioxide Level 30 mmol/L (21-32) Anion Gap 8 (6-14) Blood Urea Nitrogen 49 mg/dL (7-20) Creatinine 5.2 mg/dL (0.6-1.0) Estimated GFR (Cockcroft-Gault) 8.0 Glucose Level 84 mg/dL (70-99) Calcium Level 7.8 mg/dL (8.5-10.1) Phosphorus Level 5.0 mg/dL (2.6-4.7) Albumin 2.9 g/dL (3.4-5.0) Glucose (Fingerstick) 83 mg/dL (70-99) Medications Current Medications Ondansetron HCl (Zofran) 4 mg PRN Q4HRS PRN IV NAUSEA/VOMITING; Start 07/03/19 at 19:15 Zolpidem Tartrate (Ambien) 5 mg PRN QHS PRN PO INSOMNIA; Start 07/03/19 at 19:15; Stop 07/04/19 at 13:47; Status DC Acetaminophen (Tylenol) 650 mg PRN Q4HRS PRN PO TEMP OVER 100.4F OR MILD PAIN Last administered on 07/04/19at 00:26; Start 07/03/19 at 19:15 Docusate Sodium (Colace) 100 mg PRN BID PRN PO CONSTIPATION; Start 07/03/19 at 19:15 Albuterol Sulfate (Ventolin Neb Soln) 2.5 mg PRN Q4HRS PRN NEB SHORTNESS OF BREATH Last administered on 07/04/19at 02:46; Start 07/03/19 at 19:15 Guaifenesin (Robitussin) 200 mg PRN Q4HRS PRN PO COUGH; Start 07/03/19 at 19:15 Lorazepam (Ativan) 0.5 mg PRN Q4HRS PRN PO ANXIETY / AGITATION; Start 07/03/19 at 19:15; Stop 07/04/19 at 13:47; Status DC Amlodipine Besylate (Norvasc) 5 mg DAILY PO Last administered on 07/05/19at 09:14; Start 07/03/19 at 21:00; Stop 07/05/19 at 15:17; Status DC Hydralazine HCl (Apresoline Inj) 10 mg PRN Q4HRS PRN IVP ELEVATED BP, SEE COMMENTS Last administered on 07/06/19at 02:42; Start 07/03/19 at 19:15 Furosemide (Lasix) 40 mg [id number] IVP Last administered on 07/05/19at 15:04; Start 07/03/19 at 21:00 Aspirin (Aspirin Chewable) 81 mg DAILY PO Last administered on 07/06/19at 08:09; Start 07/04/19 at 09:00 Clopidogrel Bisulfate (Plavix) 75 mg DAILY PO Last administered on 07/06/19at 08:10; Start 07/04/19 at 09:00 Nicotine (Nicoderm Cq 21mg) 1 patch PRN DAILY PRN TD NICOTINE WITHDRAWAL; Start 07/03/19 at 19:45 Atorvastatin Calcium (Lipitor) 20 mg QHS PO Last administered on 07/05/19at 20:45; Start 07/03/19 at 21:00 Nicardipine HCl 50 mg/Sodium Chloride 250 ml @ 25 mls/hr CONT PRN IV SEE I/O RECORD Last administered on 07/05/19at 06:46; Start 07/04/19 at 00:15; Stop 07/05/19 at 15:17; Status DC Sodium Chloride 1,000 ml @ 1,000 mls/hr Q1H PRN IV hypotension; Start 07/04/19 at 09:47; Stop 07/04/19 at 15:46; Status DC Albumin Human 200 ml @ 200 mls/hr 1X PRN PRN IV Hypotension; Start 07/04/19 at 10:00; Stop 07/04/19 at 15:59; Status DC Acetaminophen (Tylenol) 500 mg 1X PRN PRN PO MILD PAIN / TEMP Last administered on 07/04/19at 20:14; Start 07/04/19 at 10:00; Stop 07/05/19 at 09:59; Status DC Diphenhydramine HCl (Benadryl) 25 mg 1X PRN PRN IV ITCHING; Start 07/04/19 at 10:00; Stop 07/05/19 at 09:59; Status DC Diphenhydramine HCl (Benadryl) 25 mg 1X PRN PRN IV ITCHING; Start 07/04/19 at 10:00; Stop 07/05/19 at 09:59; Status DC Sodium Chloride 1,000 ml @ 400 mls/hr Q2H30M PRN IV PATENCY; Start 07/04/19 at 09:47; Stop 07/04/19 at 21:46; Status DC Info (PHARMACY MONITORING -- do not chart) 1 each PRN DAILY PRN MC SEE COMMENTS; Start 07/04/19 at 10:00 Trazodone HCl (Desyrel) 50 mg PRN QHS PRN PO INSOMNIA Last administered on 07/05/19at 20:42; Start 07/04/19 at 21:00 Cyanocobalamin (Vitamin B-12) 1,000 mcg 1X ONCE IM Last administered on 07/04at 09:15; Start 07/05/19 at 08:15; Stop 07/05/19 at 08:16; Status DC Cyanocobalamin (Vitamin B-12) 1,000 mcg DAILY PO Last administered on 07/06/19at 08:09; Start 07/06/19 at 09:00 Albuterol/ Ipratropium (Duoneb) 3 ml RTQID NEB Last administered on 07/06/19at 08:00; Start 07/05/19 at 16:00 Budesonide (Pulmicort) 0.5 mg RTBID NEB Last administered on 07/06/19at 08:00; Start 07/05/19 at 20:00 Hydralazine HCl (Apresoline) 75 mg TID PO Last administered on 07/05/19at 20:43; Start 07/05/19 at 14:00 Ceftriaxone Sodium (Rocephin) 1 gm Q24H IVP Last administered on 07/05/19at 15:05; Start 07/05/19 at 13:30 Isosorbide Mononitrate (Imdur) 60 mg DAILY PO Last administered on 07/05/19at 15:04; Start 07/05/19 at 15:00 Hydralazine HCl (Apresoline Inj) 10 mg PRN Q4HRS PRN IVP ELEVATED BP, SEE COMMENTS; Start 07/05/19 at 15:15; Status UNV Amlodipine Besylate (Norvasc) 10 mg DAILY PO ; Start 07/06/19 at 09:00 Lisinopril (Prinivil) 40 mg DAILY PO Last administered on 07/05/19at 17:02; Start 07/05/19 at 16:00 Lactobacillus Rhamnosus (Culturelle) 1 cap BID PO Last administered on 07/06/19at 08:10; Start 07/05/19 at 21:00 Sodium Chloride 1,000 ml @ 1,000 mls/hr Q1H PRN IV hypotension; Start 07/06/19 at 08:12; Stop 07/06/19 at 14:11 Diphenhydramine HCl (Benadryl) 25 mg 1X PRN PRN IV ITCHING; Start 07/06/19 at 08:15; Stop 07/07/19 at 08:14 Diphenhydramine HCl (Benadryl) 25 mg 1X PRN PRN IV ITCHING; Start 07/06/19 at 08:15; Stop 07/07/19 at 08:14 Sodium Chloride 1,000 ml @ 400 mls/hr Q2H30M PRN IV PATENCY; Start 07/06/19 at 08:12; Stop 07/06/19 at 20:11 Info (PHARMACY MONITORING -- do not chart) 1 each PRN DAILY PRN MC SEE COMMENTS; Start 07/06/19 at 08:15 Lidocaine HCl (Xylocaine-Mpf 1% 2ml Vial) 2 ml STK-MED ONCE .ROUTE ; Start 07/06/19 at 08:55; Stop 07/06/19 at 08:56; Status DC Active Scripts Active Reported Children's Aspirin (Aspirin) 81 Mg Tab.chew 1 Tab PO DAILY 30 Days Clopidogrel (Clopidogrel Bisulfate) 75 Mg Tablet 1 Tab PO DAILY Proair Hfa (Albuterol Sulfate) 8.5 Gm Hfa.aer.ad 2 Puff IH PRN Q4-6HRS PRN 21 Days Atorvastatin Calcium 80 Mg Tablet 20 Mg PO QHS Lisinopril 40 Mg Tablet 1 Tab PO DAILY Nifedipine Er (Nifedipine) 30 Mg Tablet.er 3 Tab PO BID Hydralazine Hcl 50 Mg Tablet 1.5 Tab PO TID NICODERM CQ 21mg (Nicotine) 1 Each Patch.td24 1 Patch TP DAILY PRN Vitals/I & O Vital Sign - Last 24 Hours 07/05/19 07/05/19 07/05/19 07/05/19 14:45 15:04 15:04 15:50 Temp 98.0 98.0 Pulse 75 65 65 Resp 16 B/P (MAP) 169/77 (107) Pulse Ox 98 O2 Delivery Nasal Cannula Nasal Cannula O2 Flow Rate 2.0 2.0 07/05/19 07/05/19 07/05/19 07/05/19 16:21 17:02 19:00 19:10 Temp 98.2 98.2 Pulse 71 76 Resp 20 B/P (MAP) 182/83 (116) Pulse Ox 99 O2 Delivery Nasal Cannula Nasal Cannula Nasal Cannula O2 Flow Rate 2.0 2.0 2.0 07/05/19 07/05/19 07/05/19 07/05/19 20:43 21:09 21:09 22:47 Temp 98.1 98.1 Pulse 71 76 Resp 20 B/P (MAP) 169/77 160/77 (104) Pulse Ox 98 O2 Delivery Nasal Cannula Nasal Cannula Nasal Cannula O2 Flow Rate 2.0 2.0 2.0 07/06/19 07/06/19 07/06/19 07/06/19 02:26 02:42 07:00 08:03 Temp 98.2 98.6 98.2 98.6 Pulse 72 72 68 Resp 18 16 B/P (MAP) 197/82 (120) 197/82 186/81 (116) Pulse Ox 99 96 97 O2 Delivery Nasal Cannula Nasal Cannula Nasal Cannula O2 Flow Rate 2.0 2.0 2.0 07/06/19 08:05 O2 Delivery Nasal Cannula O2 Flow Rate 2.0 Intake and Output 07/05/19 07/05/19 07/06/19 14:59 22:59 06:59 Intake Total 580 ml 680 ml 200 ml Output Total 0 ml 100 ml Balance 580 ml 680 ml 100 ml RAJANI ABERNATHY MD Jul 06, 2019 11:06
--- NOTE | 2019-07-06 11:44 | NUR ---
SS following up with discharge planning. SS discussed with pt RN. Pt will discharge to home when medically stable. Pt currently in dialysis. Pt has no home oxygen. Pt was taken off oxygen this morning by respiratory. SS will continue to follow for discharge planning.
--- NOTE | 2019-07-06 12:08 | PDOC ---
Renal-Progress Notes Subjective Notes Notes LESS SOB History of Present Illness Hx of present illness CHRONIC SOB Vitals Vitals Vital Signs Date Time Temp Pulse Resp B/P (MAP) Pulse Ox O2 Delivery O2 Flow Rate FiO2 07/06/19 08:05 Nasal Cannula 2.0 07/06/19 08:03 97 07/06/19 07:00 98.6 68 16 186/81 (116) 98.6 Weight Weight [ ] I.O. Intake and Output Intake and Output 07/06/19 07:00 Intake Total 1460 ml Output Total 100 ml Balance 1360 ml Intake Oral 1460 ml Output Urine Total 100 ml Labs Labs Laboratory Tests Test 07/05/19 14:35 07/05/19 16:57 07/05/19 20:40 07/06/19 03:55 Sodium Level 141 mmol/L (136-145) 143 mmol/L (136-145) Potassium Level 4.5 mmol/L (3.5-5.1) 4.5 mmol/L (3.5-5.1) Chloride Level 102 mmol/L (98-107) 105 mmol/L (98-107) Carbon Dioxide Level 31 mmol/L (21-32) 30 mmol/L (21-32) Anion Gap 8 (6-14) 8 (6-14) Blood Urea Nitrogen 35 mg/dL (7-20) 49 mg/dL (7-20) Creatinine 4.6 mg/dL (0.6-1.0) 5.2 mg/dL (0.6-1.0) Estimated GFR (Cockcroft-Gault) 9.2 8.0 BUN/Creatinine Ratio 8 (6-20) Glucose Level 132 mg/dL (70-99) 84 mg/dL (70-99) Calcium Level 8.4 mg/dL (8.5-10.1) 7.8 mg/dL (8.5-10.1) Magnesium Level 1.9 mg/dL (1.8-2.4) Total Bilirubin 0.4 mg/dL (0.2-1.0) Aspartate Amino Transf (AST/SGOT) 27 U/L (15-37) Alanine Aminotransferase (ALT/SGPT) 16 U/L (14-59) Alkaline Phosphatase 86 U/L (46-116) Total Protein 6.8 g/dL (6.4-8.2) Albumin 3.5 g/dL (3.4-5.0) 2.9 g/dL (3.4-5.0) Albumin/Globulin Ratio 1.1 (1.0-1.7) Procalcitonin 0.26 ng/mL (0.00-0.10) Thyroid Stimulating Hormone (TSH) 2.289 uIU/mL (0.358-3.74) Glucose (Fingerstick) 86 mg/dL (70-99) 106 mg/dL (70-99) White Blood Count 6.3 x10^3/uL (4.0-11.0) Red Blood Count 2.89 x10^6/uL (3.50-5.40) Hemoglobin 9.9 g/dL (12.0-15.5) Hematocrit 30.5 % (36.0-47.0) Mean Corpuscular Volume 106 fL (79-100) Mean Corpuscular Hemoglobin 34 pg (25-35) Mean Corpuscular Hemoglobin Concent 33 g/dL (31-37) Red Cell Distribution Width 15.0 % (11.5-14.5) Platelet Count 181 x10^3/uL (140-400) Neutrophils (%) (Auto) 72 % (31-73) Lymphocytes (%) (Auto) 17 % (24-48) Monocytes (%) (Auto) 8 % (0-9) Eosinophils (%) (Auto) 3 % (0-3) Basophils (%) (Auto) 0 % (0-3) Neutrophils # (Auto) 4.5 x10^3/uL (1.8-7.7) Lymphocytes # (Auto) 1.1 x10^3/uL (1.0-4.8) Monocytes # (Auto) 0.5 x10^3/uL (0.0-1.1) Eosinophils # (Auto) 0.2 x10^3/uL (0.0-0.7) Basophils # (Auto) 0.0 x10^3/uL (0.0-0.2) Phosphorus Level 5.0 mg/dL (2.6-4.7) Test 07/06/19 07:33 Glucose (Fingerstick) 83 mg/dL (70-99) Review of Systems Constitutional: yes: alert, oriented Ears/Nose/Throat: Yes: no symptom reported Eyes: Yes: no symptom reported Pulmonary: Yes dyspnea Cardiovascular: Yes no symptom reported Gastrointestional: Yes: no symptom reported Genitourinary: Yes: no symptom reported Musculoskeletal: Yes: muscle stiffness Skin: Yes no symptom reported Psychiatric/Neurological: Yes: no symptom reported Endocrine: Yes: no symptom reported Physical Exam General Appearance: no apparent distress Skin: warm Respiratory: decreased breath sounds Heart: S1S2 Abdomen: soft, bowel sounds present Genitourinary: bladder flat Extremities: pulses present Neurology: alert Musculoskeletal: Osteoarthritis Assessment Assessment IMP ESRD ANEMIA HTN COPD CHF-DIASTOLIC ACUTE AND CHRONIC PLAN HD TODAY UF TO DW SUPPLEMENTAL O2 NEEDED YAIMA WHEN NEEDED WILL FOLLOW STEPHAN CAMPOS MD Jul 06, 2019 12:08
[2019-07-06] MEDS: LISINOPRIL 20 MG TABLET PO SCH (12:51)
[2019-07-06] MEDS: amLODIPine BESYLATE 10 MG TABLET PO SCH (12:51)
[2019-07-06] MEDS: ISOSORBIDE MONONITRATE ER 30 MG TAB.ER.24H PO SCH (12:52)
[2019-07-06] MEDS: cefTRIAXone IV Push 1 GM VIAL. IVP SCH (12:53)
[2019-07-06] MEDS: FUROSEMIDE 40 MG/4 ML VIAL. IVP SCH ×2 (12:53→13:00)
[2019-07-06 14:38] VITALS: BP 155/66
[2019-07-06 19:00] VITALS: BP 179/84
[2019-07-06] MEDS: ATORVASTATIN CALCIUM 20 MG TABLET PO SCH (20:34)
[2019-07-06] MEDS: traZODone 50 MG TABLET. PO PRN (20:34)
[2019-07-06 22:31] VITALS: BP 170/69
[2019-07-07] MEDS: ACETAMINOPHEN 325 MG TABLET. PO PRN (00:14)
[2019-07-07] MEDS: hydrALAZINE 20 MG/ML VIAL. IVP PRN (01:01)
[2019-07-07 02:48] VITALS: BP 143/66
[2019-07-07 07:00] VITALS: BP 193/76
[2019-07-07] MEDS: BUDESONIDE 0.5 MG/2 ML NEBU. NEB SCH ×2 (07:41→20:25)
[2019-07-07] MEDS: IPRATRPIUM/ALBUTEROL 0.5/2.5MG 3 ML NEBU. NEB SCH ×4 (07:41→20:25)
--- NOTE | 2019-07-07 08:35 | PDOC ---
CL[facility] [employer] PROFESSIONAL INSTRUCTOR 07/07/19 0835: CARDIO Progress Notes Date and Time Date of Service 07/07/2019 Time of Evaluation 0940 Subjective Subjective: No Chest Pain, No shortness of breath, No Palpitations Vitals Vitals Vital Signs Date Time Temp Pulse Resp B/P (MAP) Pulse Ox O2 Delivery O2 Flow Rate FiO2 07/07/19 07:41 96 Room Air 07/07/19 02:48 98.7 74 16 143/66 (91) 98.7 07/06/19 20:00 Weight Weight [ ] Input and Output Intake and Output Intake and Output 07/07/19 07:00 Intake Total 318 ml Output Total 0 ml Balance 318 ml Intake Oral 318 ml Output Urine Total 0 ml # Voids 1 # Bowel Movements 1 Laboratory Labs Laboratory Tests Test 07/06/19 17:03 07/06/19 20:27 07/07/19 07:44 Glucose (Fingerstick) 100 mg/dL (70-99) 116 mg/dL (70-99) 95 mg/dL (70-99) Review of Systems Constitutional: yes: alert, oriented Ears/Nose/Throat: Yes: no symptom reported Eyes: Yes: no symptom reported Pulmonary: Yes dyspnea Cardiovascular: Yes no symptom reported Gastrointestional: Yes: no symptom reported Genitourinary: Yes: no symptom reported Musculoskeletal: Yes: muscle stiffness Skin: Yes no symptom reported Psychiatric/Neurological: Yes: no symptom reported Endocrine: Yes: no symptom reported Physical Exam HEENT: Neck Supple W Full Motion Chest: Symmetric LUNGS: Other (diminished bases, basilar wheeze) Heart: S1S2, RRR (SR) Abdomen: Soft N/T Extremities: No Edema, No Calf Tenderness Neurology: alert, oriented, follow commands Assessment Assessment 1. Malignant HTN: much better with current adjusted regimen 2. AECOPD with continued tobaccoism: pulmonary following. SOA better 3. Acute on chronic diastolic CHF: precipitated by above. Compensated 4. Moderate to severe pulmonary HTN with underlying COPD 5. Valvular insufficiency: Moderate AI, mild MR/TR 6. PAFIB: new. noted with brief paroxysms. presently SR 7. CAD; x1 stent in [place] >1 yr ago 8. ESRD; approx started 2 yrs ago 9. Hx of DM2: taken off regimen due to hypoglycemia 10. Hx of anaphylaxis with coreg 11. Hx of hives with Iodine 12. Hx of remote PE 13. Macrocytic anemia Recommendations 1. Continue current BP regimen when DC. NO BB 2. Fluid off loading per HD T-TH-S 3. Continue home ASA/plavix/statin 4. Consider for MCOT and note AFIB burden. 5. Will need to establish cardiology care as an outpt. No cardiac records yet from [place]. Pt would rather have a supplier quality specialist close to her daughter's home at [place], discussed with RN and will talk to daughter. May f/u with our group if pt chooses. RIANA CARY MD 07/07/19 1619: CARDIO Progress Notes Plan Plan Pt. seen and examined. Agree with above DOOR [employer]OR LEAD GENERATION note. Remains quite hypertensive. Needs better BP control prior to DC. Discussed with RN. Will recheck BP's and add coreg 6.25mg bid. thanks CL[employer]ENCE S[employer] PROFESSIONAL INSTRUCTOR Jul 07, 2019 08:35 RIANA CARY MD Jul 07, 2019 16:19
--- NOTE | 2019-07-07 09:04 | PDOC ---
PULMONARY PROGRESS NOTES Subjective Pt. is on room air, denies SOA or cough Wants to D/C home today Vitals Vital Signs Date Time Temp Pulse Resp B/P (MAP) Pulse Ox O2 Delivery O2 Flow Rate FiO2 07/07/19 07:41 96 Room Air 07/07/19 07:00 98.1 76 16 193/76 (115) 98.1 07/06/19 20:00 ROS: No Nausea, No Chest Pain, No Abdominal Pain, No Increase Cough General: Alert, No acute distress Lungs: Clear, Other Cardiovascular: S1 Abdomen: Soft Neuro Exam: Alert Extremities: Other Labs Laboratory Tests Test 07/05/19 11:58 07/05/19 14:35 07/05/19 16:57 07/05/19 20:40 Glucose (Fingerstick) 86 mg/dL (70-99) 86 mg/dL (70-99) 106 mg/dL (70-99) Sodium Level 141 mmol/L (136-145) Potassium Level 4.5 mmol/L (3.5-5.1) Chloride Level 102 mmol/L (98-107) Carbon Dioxide Level 31 mmol/L (21-32) Anion Gap 8 (6-14) Blood Urea Nitrogen 35 mg/dL (7-20) Creatinine 4.6 mg/dL (0.6-1.0) Estimated GFR (Cockcroft-Gault) 9.2 BUN/Creatinine Ratio 8 (6-20) Glucose Level 132 mg/dL (70-99) Calcium Level 8.4 mg/dL (8.5-10.1) Magnesium Level 1.9 mg/dL (1.8-2.4) Total Bilirubin 0.4 mg/dL (0.2-1.0) Aspartate Amino Transf (AST/SGOT) 27 U/L (15-37) Alanine Aminotransferase (ALT/SGPT) 16 U/L (14-59) Alkaline Phosphatase 86 U/L (46-116) Total Protein 6.8 g/dL (6.4-8.2) Albumin 3.5 g/dL (3.4-5.0) Albumin/Globulin Ratio 1.1 (1.0-1.7) Procalcitonin 0.26 ng/mL (0.00-0.10) Thyroid Stimulating Hormone (TSH) 2.289 uIU/mL (0.358-3.74) Test 07/06/19 03:55 07/06/19 07:33 07/06/19 17:03 07/06/19 20:27 White Blood Count 6.3 x10^3/uL (4.0-11.0) Red Blood Count 2.89 x10^6/uL (3.50-5.40) Hemoglobin 9.9 g/dL (12.0-15.5) Hematocrit 30.5 % (36.0-47.0) Mean Corpuscular Volume 106 fL (79-100) Mean Corpuscular Hemoglobin 34 pg (25-35) Mean Corpuscular Hemoglobin Concent 33 g/dL (31-37) Red Cell Distribution Width 15.0 % (11.5-14.5) Platelet Count 181 x10^3/uL (140-400) Neutrophils (%) (Auto) 72 % (31-73) Lymphocytes (%) (Auto) 17 % (24-48) Monocytes (%) (Auto) 8 % (0-9) Eosinophils (%) (Auto) 3 % (0-3) Basophils (%) (Auto) 0 % (0-3) Neutrophils # (Auto) 4.5 x10^3/uL (1.8-7.7) Lymphocytes # (Auto) 1.1 x10^3/uL (1.0-4.8) Monocytes # (Auto) 0.5 x10^3/uL (0.0-1.1) Eosinophils # (Auto) 0.2 x10^3/uL (0.0-0.7) Basophils # (Auto) 0.0 x10^3/uL (0.0-0.2) Sodium Level 143 mmol/L (136-145) Potassium Level 4.5 mmol/L (3.5-5.1) Chloride Level 105 mmol/L (98-107) Carbon Dioxide Level 30 mmol/L (21-32) Anion Gap 8 (6-14) Blood Urea Nitrogen 49 mg/dL (7-20) Creatinine 5.2 mg/dL (0.6-1.0) Estimated GFR (Cockcroft-Gault) 8.0 Glucose Level 84 mg/dL (70-99) Calcium Level 7.8 mg/dL (8.5-10.1) Phosphorus Level 5.0 mg/dL (2.6-4.7) Albumin 2.9 g/dL (3.4-5.0) Glucose (Fingerstick) 83 mg/dL (70-99) 100 mg/dL (70-99) 116 mg/dL (70-99) Test 07/07/19 07:44 Glucose (Fingerstick) 95 mg/dL (70-99) Laboratory Tests Test 07/06/19 17:03 07/06/19 20:27 07/07/19 07:44 Glucose (Fingerstick) 100 mg/dL (70-99) 116 mg/dL (70-99) 95 mg/dL (70-99) Medications Active Scripts Medications Dose Route/Sig Max Daily Dose Days Date Category Children's Aspirin (Aspirin) 81 Mg Tab.chew 1 Tab PO DAILY 30 07/03/19 Reported Clopidogrel (Clopidogrel Bisulfate) 75 Mg Tablet 1 Tab PO DAILY 07/03/19 Reported Proair Hfa (Albuterol Sulfate) 8.5 Gm Hfa.aer.ad 2 Puff IH PRN Q4-6HRS PRN 21 07/03/19 Reported Atorvastatin Calcium 80 Mg Tablet 20 Mg PO QHS 07/03/19 Reported Lisinopril 40 Mg Tablet 1 Tab PO DAILY 07/03/19 Reported Nifedipine Er (Nifedipine) 30 Mg Tablet.er 3 Tab PO BID 07/03/19 Reported Hydralazine Hcl 50 Mg Tablet 1.5 Tab PO TID 07/03/19 Reported NICODERM CQ 21mg (Nicotine) 1 Each Patch.td24 1 Patch TP DAILY PRN 07/03/[address] CHEST 1. Mild-moderate left pleural effusion with volume loss and atelectasis of the left lower lobe with consolidation due to extensive atelectasis versus superimposed lobar pneumonia. 2. Subpleural linear nodular densities of the right middle and lower lobes typical of atelectasis or scarring with collapse of most of the right middle lobe from atelectasis. No discrete mass lesion or bronchial occlusion/cut off to suggest airway obstruction. 3. Follow-up CT imaging in 3-6 months is advised to document stability of the linear scarring/atelectasis at the right lung and to document that the volume loss and opacity of the left lower lobe resolves over time to exclude the possibility of underlying neoplastic lesion. 4. 3 cm focal density of the left upper outer breast which may be glandular asymmetry versus a mass. Consider further assessment with mammography and possibly breast sonography. Impression . 1. Acute hypoxic respiratory failure with bronchospasm. Could be multifactorial and includes combination of acute on chronic diastolic heart failure/ chronic obstructive pulmonary disease exacerbation. 2. History of 45+ years of tobacco use, likely underlying severe chronic obstructive pulmonary disease. 3. Cough with yellow sputum production. Cannot exclude the possibility of pneumonia. 4. End-stage renal disease, on hemodialysis. 5. History of coronary artery disease and stents in the past. 6. History of pulmonary embolism in the past, was treated with anticoagulation. The patient is no longer on blood thinners. 7. ABNORMAL CT CHEST Plan . RECOMMENDATIONS: Continue with bronchodilators including DuoNebs and Pulmicort. HD with UF-- follow nephrology recs CT chest reviewed. LLL effusion/ atelectasis/ Rt lung patchy opacities, RML atelectasis., repeat ct in 6-8 weeks per PCP in [place] empiric antibiotic. Follow Renal and Cardiology recommendations. Pt. will need outpatient mammogram breat mass vs. cyst-- per PCP . d/w DR Dank Cooper to D/C home today from our standpoint D/W GIAN EDWARD MD Jul 07, 2019 09:04
[2019-07-07] MEDS: CYANOCOBALAMIN (VITAMIN B-12) 1,000 MCG TABLET. PO SCH (09:25)
[2019-07-07] MEDS: CLOPIDOGREL BISULFATE 75 MG TABLET PO SCH (09:26)
[2019-07-07] MEDS: LACTOBACILLUS RHAMNOSUS GG 1 CAPSULE. PO SCH ×2 (09:26→21:44)
[2019-07-07] MEDS: LISINOPRIL 20 MG TABLET PO SCH (09:26)
[2019-07-07] MEDS: ISOSORBIDE MONONITRATE ER 30 MG TAB.ER.24H PO SCH (09:26)
[2019-07-07] MEDS: ASPIRIN CHEWABLE 81 MG TABLET. PO SCH (09:26)
[2019-07-07] MEDS: amLODIPine BESYLATE 10 MG TABLET PO SCH (09:27)
[2019-07-07] MEDS: FUROSEMIDE 40 MG/4 ML VIAL. IVP SCH ×2 (09:31→13:11)
[2019-07-07 11:00] VITALS: BP 202/86
--- NOTE | 2019-07-07 11:00 | PDOC ---
Renal-Progress Notes Subjective Notes Notes NO SOB History of Present Illness Hx of present illness STABLE Vitals Vitals Vital Signs Date Time Temp Pulse Resp B/P (MAP) Pulse Ox O2 Delivery O2 Flow Rate FiO2 07/07/19 09:27 76 193/76 07/07/19 07:41 96 Room Air 07/07/19 07:00 98.1 16 98.1 07/06/19 20:00 Weight Weight [ ] I.O. Intake and Output Intake and Output 07/07/19 07:00 Intake Total 318 ml Output Total 0 ml Balance 318 ml Intake Oral 318 ml Output Urine Total 0 ml # Voids 1 # Bowel Movements 1 Labs Labs Laboratory Tests Test 07/06/19 17:03 07/06/19 20:27 07/07/19 07:44 Glucose (Fingerstick) 100 mg/dL (70-99) 116 mg/dL (70-99) 95 mg/dL (70-99) Review of Systems Constitutional: yes: alert, oriented Ears/Nose/Throat: Yes: no symptom reported Eyes: Yes: no symptom reported Pulmonary: Yes dyspnea Cardiovascular: Yes no symptom reported Gastrointestional: Yes: no symptom reported Genitourinary: Yes: no symptom reported Musculoskeletal: Yes: muscle stiffness Skin: Yes no symptom reported Psychiatric/Neurological: Yes: no symptom reported Endocrine: Yes: no symptom reported Physical Exam General Appearance: no apparent distress Skin: warm Respiratory: decreased breath sounds Heart: S1S2 Abdomen: soft, bowel sounds present Genitourinary: bladder flat Extremities: pulses present Neurology: alert, oriented, follow commands Musculoskeletal: Osteoarthritis Assessment Assessment IMP ESRD ANEMIA HTN COPD CHF-DIASTOLIC ACUTE AND CHRONIC PLAN HD TOMORROW SUPPLEMENTAL O2 NEEDED YAIMA WHEN NEEDED WILL FOLLOW POSSIBLE D/C STEPHAN CAMPOS MD Jul 07, 2019 11:00
--- NOTE | 2019-07-07 11:32 | PDOC ---
PROGRESS NOTES Chief Complaint Chief Complaint impression Dyspnea which seems to be volume overload ESRD on HD Uncontrolled hypertension, hypertensive urgency as per outside facility, remains in poor control 07/06 COPD history of depression History of CAD with old AR as per records, currently asymptomatic 07/05 d/w RN 07/06 Consider for MCOT and note AFIB burden. D/W RN /// inc hydralazine to 100mg po tid Pt. will need outpatient mammogram breast mass vs. cyst History of Present Illness History of Present Illness Ms Coburn is a 79 year old female w/ PMHx HTN, ESRD TuThSa, COPD, CAD who recently moved from [place] to [place], [place] who was in her usual state of health until 07/01/2019 when she started noticing dyspnea. She denies sick contacts, no sputum production, no pleurisy has been reported nevertheless she noticed dyspnea especially on exertion. She denies dietary transgression no excess fluid and in fact has modified her lifestyle significantly. Stable dry weight of 62kg. Did have desaturations less than 89%, placed on 2 liters of oxygen she does not seem to have excess work of breathing nevertheless she does have evidence of Oscar b lines on x ray done at outside facility. She probably has volume overload and her BP is uncontrolled as per the outside facility report. 07/03: BNP > 35K. Still on O2. Seen on dialysis. Noted with goal 3300 UF at dialysis. No chest pain. 07/05 LESS short of breath with yellow sputum today. NO Wheezing. Feeling somewhat better after dialysis, has a good appetite. 07/06 Consider for MCOT and note AFIB burden. Vitals Vitals Vital Signs Date Time Temp Pulse Resp B/P (MAP) Pulse Ox O2 Delivery O2 Flow Rate FiO2 07/07/19 11:18 96 Room Air 07/07/19 09:27 76 193/76 07/07/19 08:00 2.0 07/07/19 07:00 98.1 16 98.1 Physical Exam General: Alert, Oriented X3, Cooperative, No acute distress Heart: Regular rate (SR), Other (3/6 diastolic murmur to ERB) Lungs: Clear, Other Abdomen: Soft Extremities: No cyanosis, No edema Skin: No breakdown, No significant lesion Labs LABS Laboratory Tests Test 07/06/19 17:03 07/06/19 20:27 07/07/19 07:44 Glucose (Fingerstick) 100 mg/dL (70-99) 116 mg/dL (70-99) 95 mg/dL (70-99) Comment Review of Relevant I have reviewed the following items harish (where applicable) has been applied. Labs Laboratory Tests Test 07/05/19 11:58 07/05/19 14:35 07/05/19 16:57 07/05/19 20:40 Glucose (Fingerstick) 86 mg/dL (70-99) 86 mg/dL (70-99) 106 mg/dL (70-99) Sodium Level 141 mmol/L (136-145) Potassium Level 4.5 mmol/L (3.5-5.1) Chloride Level 102 mmol/L (98-107) Carbon Dioxide Level 31 mmol/L (21-32) Anion Gap 8 (6-14) Blood Urea Nitrogen 35 mg/dL (7-20) Creatinine 4.6 mg/dL (0.6-1.0) Estimated GFR (Cockcroft-Gault) 9.2 BUN/Creatinine Ratio 8 (6-20) Glucose Level 132 mg/dL (70-99) Calcium Level 8.4 mg/dL (8.5-10.1) Magnesium Level 1.9 mg/dL (1.8-2.4) Total Bilirubin 0.4 mg/dL (0.2-1.0) Aspartate Amino Transf (AST/SGOT) 27 U/L (15-37) Alanine Aminotransferase (ALT/SGPT) 16 U/L (14-59) Alkaline Phosphatase 86 U/L (46-116) Total Protein 6.8 g/dL (6.4-8.2) Albumin 3.5 g/dL (3.4-5.0) Albumin/Globulin Ratio 1.1 (1.0-1.7) Procalcitonin 0.26 ng/mL (0.00-0.10) Thyroid Stimulating Hormone (TSH) 2.289 uIU/mL (0.358-3.74) Test 07/06/19 03:55 07/06/19 07:33 07/06/19 17:03 07/06/19 20:27 White Blood Count 6.3 x10^3/uL (4.0-11.0) Red Blood Count 2.89 x10^6/uL (3.50-5.40) Hemoglobin 9.9 g/dL (12.0-15.5) Hematocrit 30.5 % (36.0-47.0) Mean Corpuscular Volume 106 fL (79-100) Mean Corpuscular Hemoglobin 34 pg (25-35) Mean Corpuscular Hemoglobin Concent 33 g/dL (31-37) Red Cell Distribution Width 15.0 % (11.5-14.5) Platelet Count 181 x10^3/uL (140-400) Neutrophils (%) (Auto) 72 % (31-73) Lymphocytes (%) (Auto) 17 % (24-48) Monocytes (%) (Auto) 8 % (0-9) Eosinophils (%) (Auto) 3 % (0-3) Basophils (%) (Auto) 0 % (0-3) Neutrophils # (Auto) 4.5 x10^3/uL (1.8-7.7) Lymphocytes # (Auto) 1.1 x10^3/uL (1.0-4.8) Monocytes # (Auto) 0.5 x10^3/uL (0.0-1.1) Eosinophils # (Auto) 0.2 x10^3/uL (0.0-0.7) Basophils # (Auto) 0.0 x10^3/uL (0.0-0.2) Sodium Level 143 mmol/L (136-145) Potassium Level 4.5 mmol/L (3.5-5.1) Chloride Level 105 mmol/L (98-107) Carbon Dioxide Level 30 mmol/L (21-32) Anion Gap 8 (6-14) Blood Urea Nitrogen 49 mg/dL (7-20) Creatinine 5.2 mg/dL (0.6-1.0) Estimated GFR (Cockcroft-Gault) 8.0 Glucose Level 84 mg/dL (70-99) Calcium Level 7.8 mg/dL (8.5-10.1) Phosphorus Level 5.0 mg/dL (2.6-4.7) Albumin 2.9 g/dL (3.4-5.0) Glucose (Fingerstick) 83 mg/dL (70-99) 100 mg/dL (70-99) 116 mg/dL (70-99) Test 07/07/19 07:44 Glucose (Fingerstick) 95 mg/dL (70-99) Laboratory Tests Test 07/06/19 17:03 07/06/19 20:27 07/07/19 07:44 Glucose (Fingerstick) 100 mg/dL (70-99) 116 mg/dL (70-99) 95 mg/dL (70-99) Medications Current Medications Ondansetron HCl (Zofran) 4 mg PRN Q4HRS PRN IV NAUSEA/VOMITING; Start 07/03/19 at 19:15 Zolpidem Tartrate (Ambien) 5 mg PRN QHS PRN PO INSOMNIA; Start 07/03/19 at 19:15; Stop 07/04/19 at 13:47; Status DC Acetaminophen (Tylenol) 650 mg PRN Q4HRS PRN PO TEMP OVER 100.4F OR MILD PAIN Last administered on 07/07/19at 00:14; Start 07/03/19 at 19:15 Docusate Sodium (Colace) 100 mg PRN BID PRN PO CONSTIPATION; Start 07/03/19 at 19:15 Albuterol Sulfate (Ventolin Neb Soln) 2.5 mg PRN Q4HRS PRN NEB SHORTNESS OF BREATH Last administered on 07/04/19at 02:46; Start 07/03/19 at 19:15 Guaifenesin (Robitussin) 200 mg PRN Q4HRS PRN PO COUGH; Start 07/03/19 at 19:15 Lorazepam (Ativan) 0.5 mg PRN Q4HRS PRN PO ANXIETY / AGITATION; Start 07/03/19 at 19:15; Stop 07/04/19 at 13:47; Status DC Amlodipine Besylate (Norvasc) 5 mg DAILY PO Last administered on 07/05/19at 09:14; Start 07/03/19 at 21:00; Stop 07/05/19 at 15:17; Status DC Hydralazine HCl (Apresoline Inj) 10 mg PRN Q4HRS PRN IVP ELEVATED BP, SEE COMMENTS Last administered on 07/07/19at 01:01; Start 07/03/19 at 19:15 Furosemide (Lasix) 40 mg [id number] IVP Last administered on 07/07/19at 09:31; Start 07/03/19 at 21:00 Aspirin (Aspirin Chewable) 81 mg DAILY PO Last administered on 07/07/19at 09:26; Start 07/04/19 at 09:00 Clopidogrel Bisulfate (Plavix) 75 mg DAILY PO Last administered on 07/07/19at 09:26; Start 07/04/19 at 09:00 Nicotine (Nicoderm Cq 21mg) 1 patch PRN DAILY PRN TD NICOTINE WITHDRAWAL; Start 07/03/19 at 19:45 Atorvastatin Calcium (Lipitor) 20 mg QHS PO Last administered on 07/06/19at 20:34; Start 07/03/19 at 21:00 Nicardipine HCl 50 mg/Sodium Chloride 250 ml @ 25 mls/hr CONT PRN IV SEE I/O RECORD Last administered on 07/05/19at 06:46; Start 07/04/19 at 00:15; Stop 07/05/19 at 15:17; Status DC Sodium Chloride 1,000 ml @ 1,000 mls/hr Q1H PRN IV hypotension; Start 07/04/19 at 09:47; Stop 07/04/19 at 15:46; Status DC Albumin Human 200 ml @ 200 mls/hr 1X PRN PRN IV Hypotension; Start 07/04/19 at 10:00; Stop 07/04/19 at 15:59; Status DC Acetaminophen (Tylenol) 500 mg 1X PRN PRN PO MILD PAIN / TEMP Last administered on 07/04/19at 20:14; Start 07/04/19 at 10:00; Stop 07/05/19 at 09:59; Status DC Diphenhydramine HCl (Benadryl) 25 mg 1X PRN PRN IV ITCHING; Start 07/04/19 at 10:00; Stop 07/05/19 at 09:59; Status DC Diphenhydramine HCl (Benadryl) 25 mg 1X PRN PRN IV ITCHING; Start 07/04/19 at 10:00; Stop 07/05/19 at 09:59; Status DC Sodium Chloride 1,000 ml @ 400 mls/hr Q2H30M PRN IV PATENCY; Start 07/04/19 at 09:47; Stop 07/04/19 at 21:46; Status DC Info (PHARMACY MONITORING -- do not chart) 1 each PRN DAILY PRN MC SEE COMMENTS ; Start 07/04/19 at 10:00; Status Cancel Trazodone HCl (Desyrel) 50 mg PRN QHS PRN PO INSOMNIA Last administered on 07/06/19at 20:34; Start 07/04/19 at 21:00 Cyanocobalamin (Vitamin B-12) 1,000 mcg 1X ONCE IM Last administered on 07/05/19at 09:15; Start 07/05/19 at 08:15; Stop 07/05/19 at 08:16; Status DC Cyanocobalamin (Vitamin B-12) 1,000 mcg DAILY PO Last administered on 07/07/19 09:25; Start 07/06/19 at 09:00 Albuterol/ Ipratropium (Duoneb) 3 ml RTQID NEB Last administered on 07/07/19at 11:17; Start 07/05/19 at 16:00 Budesonide (Pulmicort) 0.5 mg RTBID NEB Last administered on 07/07/19at 07:41; Start 07/05/19 at 20:00 Hydralazine HCl (Apresoline) 75 mg TID PO Last administered on 07/07/19 09:26; Start 07/05/19 at 14:00 Ceftriaxone Sodium (Rocephin) 1 gm Q24H IVP Last administered on 07/06/19at 12:53; Start 07/05/19 at 13:30 Isosorbide Mononitrate (Imdur) 60 mg DAILY PO Last administered on 07/07/19at 09:26; Start 07/05/19 at 15:00 Hydralazine HCl (Apresoline Inj) 10 mg PRN Q4HRS PRN IVP ELEVATED BP, SEE COMMENTS; Start 07/05/19 at 15:15; Status UNV Amlodipine Besylate (Norvasc) 10 mg DAILY PO Last administered on 07/07/19 09:27; Start 07/06/19 at 09:00 Lisinopril (Prinivil) 40 mg DAILY PO Last administered on 07/07/19at 09:26; Start 07/05/19 at 16:00 Lactobacillus Rhamnosus (Culturelle) 1 cap BID PO Last administered on 07/07/19 09:26; Start 07/05/19 at 21:00 Sodium Chloride 1,000 ml @ 1,000 mls/hr Q1H PRN IV hypotension; Start 07/06/19 at 08:12; Stop 07/06/19 at 14:11; Status DC Diphenhydramine HCl (Benadryl) 25 mg 1X PRN PRN IV ITCHING; Start 07/06/19 at 08:15; Stop 07/07/19 at 08:15; Status DC Diphenhydramine HCl (Benadryl) 25 mg 1X PRN PRN IV ITCHING; Start 07/06/19 at 08:15; Stop 07/07/19 at 08:15; Status DC Sodium Chloride 1,000 ml @ 400 mls/hr Q2H30M PRN IV PATENCY; Start 07/06/19 at 08:12; Stop 07/06/19 at 20:11; Status DC Info (PHARMACY MONITORING -- do not chart) 1 each PRN DAILY PRN MC SEE COMMENTS; Start 07/06/19 at 08:15 Lidocaine HCl (Xylocaine-Mpf 1% 2ml Vial) 2 ml STK-MED ONCE .ROUTE ; Start 07/06/19 at 08:55; Stop 07/06/19 at 08:56; Status DC Lidocaine HCl (Xylocaine-Mpf 1% 2ml Vial) 2 ml STK-MED ONCE .ROUTE ; Start 07/06/19 at 09:00; Stop 07/07/19 at 11:17; Status DC Active Scripts Active Reported Children's Aspirin (Aspirin) 81 Mg Tab.chew 1 Tab PO DAILY 30 Days Clopidogrel (Clopidogrel Bisulfate) 75 Mg Tablet 1 Tab PO DAILY Proair Hfa (Albuterol Sulfate) 8.5 Gm Hfa.aer.ad 2 Puff IH PRN Q4-6HRS PRN 21 Days Atorvastatin Calcium 80 Mg Tablet 20 Mg PO QHS Lisinopril 40 Mg Tablet 1 Tab PO DAILY Nifedipine Er (Nifedipine) 30 Mg Tablet.er 3 Tab PO BID Hydralazine Hcl 50 Mg Tablet 1.5 Tab PO TID NICODERM CQ 21mg (Nicotine) 1 Each Patch.td24 1 Patch TP DAILY PRN Vitals/I & O Vital Sign - Last 24 Hours 07/06/19 07/06/19 07/06/19 07/06/19 12:51 12:51 12:52 12:52 Pulse 80 80 80 80 07/06/19 07/06/19 07/06/19 07/06/19 14:38 15:56 19:00 20:00 Temp 98.5 98.8 98.5 98.8 Pulse 85 82 Resp 16 16 B/P (MAP) 155/66 (95) 179/84 (115) Pulse Ox 93 96 93 O2 Delivery Room Air Room Air Room Air Room Air O2 Flow Rate 07/06/19 07/06/19 07/06/19 07/06/19 20:06 20:08 20:36 20:37 Pulse 82 82 B/P (MAP) 179/84 179/84 Pulse Ox 96 96 O2 Delivery Room Air Room Air 07/06/19 07/07/19 07/07/19 07/07/19 22:31 01:01 02:48 07:00 Temp 98.8 98.7 98.1 98.8 98.7 98.1 Pulse 84 84 74 76 Resp 16 16 16 B/P (MAP) 170/69 (102) 170/69 143/66 (91) 193/76 (115) Pulse Ox 92 92 97 O2 Delivery Room Air Room Air Room Air 07/07/19 07/07/19 07/07/19 07/07/19 07:41 08:00 09:26 09:26 Pulse 76 76 B/P (MAP) 193/76 193/76 Pulse Ox 96 O2 Delivery Room Air Nasal Cannula O2 Flow Rate 2.0 07/07/19 07/07/19 07/07/19 09:26 09:27 11:18 Pulse 76 76 B/P (MAP) 193/76 193/76 Pulse Ox 96 O2 Delivery Room Air Intake and Output 07/06/19 07/06/19 07/07/19 15:00 23:00 07:00 Intake Total 318 ml 0 ml Output Total 0 ml 0 ml Balance 318 ml 0 ml 0 ml RAJANI ABERNATHY MD Jul 07, 2019 11:31
[2019-07-07] MEDS: cefTRIAXone IV Push 1 GM VIAL. IVP SCH (13:11)
--- NOTE | 2019-07-07 13:35 | NUR ---
SS following up with discharge planning. SS discussed with pt RN. Pt is currently on room air. Event monitor ordered. Pt will discharge to home when ready. SS will continue to follow for discharge planning.
[2019-07-07 15:00] VITALS: BP 172/78
[2019-07-07 19:43] VITALS: BP 160/71
[2019-07-07] MEDS: traZODone 50 MG TABLET. PO PRN (21:45)
[2019-07-07] MEDS: ATORVASTATIN CALCIUM 20 MG TABLET PO SCH (21:45)
[2019-07-07 23:00] VITALS: BP 149/61
[2019-07-08 02:35] VITALS: BP 140/82
--- NOTE | 2019-07-08 06:36 | PDOC ---
PULMONARY PROGRESS NOTES Subjective Pt. is on room air, denies SOA or cough Vitals Vital Signs Date Time Temp Pulse Resp B/P (MAP) Pulse Ox O2 Delivery O2 Flow Rate FiO2 07/08/19 02:35 98.3 77 16 140/82 (101) 93 Room Air 98.3 07/07/19 08:00 2.0 ROS: No Nausea, No Chest Pain, No Abdominal Pain, No Increase Cough General: Alert, No acute distress Lungs: Other (deminished BS) Cardiovascular: S1, S2 Abdomen: Soft Neuro Exam: Alert Extremities: Other Labs Laboratory Tests Test 07/06/19 07:33 07/06/19 17:03 07/06/19 20:27 07/07/19 07:44 Glucose (Fingerstick) 83 mg/dL (70-99) 100 mg/dL (70-99) 116 mg/dL (70-99) 95 mg/dL (70-99) Test 07/07/19 12:05 07/07/19 17:03 07/07/19 21:30 Glucose (Fingerstick) 102 mg/dL (70-99) 106 mg/dL (70-99) 113 mg/dL (70-99) Laboratory Tests Test 07/07/19 07:44 07/07/19 12:05 07/07/19 17:03 07/07/19 21:30 Glucose (Fingerstick) 95 mg/dL (70-99) 102 mg/dL (70-99) 106 mg/dL (70-99) 113 mg/dL (70-99) Medications Active Scripts Medications Dose Route/Sig Max Daily Dose Days Date Category Children's Aspirin (Aspirin) 81 Mg Tab.chew 1 Tab PO DAILY 30 07/03/19 Reported Clopidogrel (Clopidogrel Bisulfate) 75 Mg Tablet 1 Tab PO DAILY 07/03/19 Reported Proair Hfa (Albuterol Sulfate) 8.5 Gm Hfa.aer.ad 2 Puff IH PRN Q4-6HRS PRN 21 07/03/19 Reported Atorvastatin Calcium 80 Mg Tablet 20 Mg PO QHS 07/03/19 Reported Lisinopril 40 Mg Tablet 1 Tab PO DAILY 07/03/19 Reported Nifedipine Er (Nifedipine) 30 Mg Tablet.er 3 Tab PO BID 07/03/19 Reported Hydralazine Hcl 50 Mg Tablet 1.5 Tab PO TID 07/03/19 Reported NICODERM CQ 21mg (Nicotine) 1 Each Patch.td24 1 Patch TP DAILY PRN 07/03/[address] CHEST 1. Mild-moderate left pleural effusion with volume loss and atelectasis of the left lower lobe with consolidation due to extensive atelectasis versus superimposed lobar pneumonia. 2. Subpleural linear nodular densities of the right middle and lower lobes typical of atelectasis or scarring with collapse of most of the right middle lobe from atelectasis. No discrete mass lesion or bronchial occlusion/cut off to suggest airway obstruction. 3. Follow-up CT imaging in 3-6 months is advised to document stability of the linear scarring/atelectasis at the right lung and to document that the volume loss and opacity of the left lower lobe resolves over time to exclude the possibility of underlying neoplastic lesion. 4. 3 cm focal density of the left upper outer breast which may be glandular asymmetry versus a mass. Consider further assessment with mammography and possibly breast sonography. Impression . 1. Acute hypoxic respiratory failure with bronchospasm. Could be multifactorial and includes combination of acute on chronic diastolic heart failure/ chronic obstructive pulmonary disease exacerbation. 2. History of 45+ years of tobacco use, likely underlying severe chronic obstructive pulmonary disease. 3. Cough with yellow sputum production. Cannot exclude the possibility of pneumonia. 4. End-stage renal disease, on hemodialysis. 5. History of coronary artery disease and stents in the past. 6. History of pulmonary embolism in the past, was treated with anticoagulation. The patient is no longer on blood thinners. 7. ABNORMAL CT CHEST Plan . RECOMMENDATIONS: Continue with bronchodilators including DuoNebs and Pulmicort. HD with UF-- follow nephrology recs CT chest reviewed. LLL effusion/ atelectasis/ Rt lung patchy opacities, RML atelectasis., need fu ct in 6-8 weeks per PCP in [place] empiric antibiotic for total of 7 days. Follow Renal and Cardiology recommendations. Pt. will need outpatient mammogram breast mass vs. cyst-- per PCP . dr martins d/w DR Lobo home today after HD D/W MITA MILLER MD Jul 08, 2019 06:36
[2019-07-08 07:00] VITALS: BP 159/74
[2019-07-08] MEDS: IPRATRPIUM/ALBUTEROL 0.5/2.5MG 3 ML NEBU. NEB SCH ×3 (07:29→15:27)
[2019-07-08] MEDS: BUDESONIDE 0.5 MG/2 ML NEBU. NEB SCH (07:29)
[2019-07-08] MEDS: CLOPIDOGREL BISULFATE 75 MG TABLET PO SCH (08:33)
[2019-07-08] MEDS: ASPIRIN CHEWABLE 81 MG TABLET. PO SCH (08:33)
[2019-07-08] MEDS: LACTOBACILLUS RHAMNOSUS GG 1 CAPSULE. PO SCH (08:33)
[2019-07-08] MEDS: CYANOCOBALAMIN (VITAMIN B-12) 1,000 MCG TABLET. PO SCH (08:33)
[2019-07-08] MEDS: LISINOPRIL 20 MG TABLET PO SCH (09:00)
[2019-07-08] MEDS: ISOSORBIDE MONONITRATE ER 30 MG TAB.ER.24H PO SCH (09:00)
[2019-07-08] MEDS: FUROSEMIDE 40 MG/4 ML VIAL. IVP SCH ×3 (09:00→15:50)
[2019-07-08] MEDS: amLODIPine BESYLATE 10 MG TABLET PO SCH (09:00)
--- NOTE | 2019-07-08 12:13 | PDOC ---
CARDIOLOGY PROGRESS NOTE SUBJECTIVE: No new events. She is on HD today. BP better. No chest pain OBJECTIVE: Vital Signs/I&O: Vital Signs Date Time Temp Pulse Resp B/P (MAP) Pulse Ox O2 Delivery O2 Flow Rate FiO2 07/08/19 08:00 Room Air 07/08/19 07:31 92 07/08/19 07:00 97.6 69 16 159/74 (102) 97.6 07/07/19 08:00 2.0 I & O 07/07/19 07/07/19 07/08/19 15:00 23:00 07:00 Intake Total 2400 ml 70 ml 100 ml Balance 2400 ml 70 ml 100 ml Objective: No new changes on exam. CURRENT MEDICATIONS: hydralazine, coreg, amlodipine, lisinopril and imdur, plavix, asa statin DIAGNOSTIC TESTING: labs reviewed Labs: Laboratory Tests Test 07/07/19 17:03 07/07/19 21:30 07/08/19 07:11 Glucose (Fingerstick) 106 mg/dL (70-99) H 113 mg/dL (70-99) H 76 mg/dL (70-99) ASSESSMENT: 1. ESRD on HD now 2. HTN 3. CAD s/p PCI remotely with preserved EF on echo. 4. Diastolic HF, improved. PLAN: 1. Continue present meds. No new CV recs. Will f/u with her on an outpt basis. Thanks. RIANA CARY MD Jul 08, 2019 12:12
--- NOTE | 2019-07-08 12:38 | PDOC ---
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 D/W RN /// inc hydralazine to 100mg po tid Pt. will need outpatient mammogram breast mass vs. cyst Continue with bronchodilators including DuoNebs and Pulmicort. 07/07 BP BETTER d/c planning 35 min History of Present Illness History of Present Illness Ms Coburn is a 79 year old female w/ PMHx HTN, ESRD TuThSa, COPD, CAD who recently moved from [place] to [place], [place] who was in her usual state of health until 07/01/2019 when she started noticing dyspnea. She denies sick contacts, no sputum production, no pleurisy has been reported nevertheless she noticed dyspnea especially on exertion. She denies dietary transgression no excess fluid and in fact has modified her lifestyle significantly. Stable dry weight of 62kg. Did have desaturations less than 89%, placed on 2 liters of oxygen she does not seem to have excess work of breathing nevertheless she does have evidence of Oscar b lines on x ray done at outside facility. She probably has volume overload and her BP is uncontrolled as per the outside facility report. 07/03: BNP > 35K. Still on O2. Seen on dialysis. Noted with goal 3300 UF at dialysis. No chest pain. 07/05 LESS short of breath with yellow sputum today. NO Wheezing. Feeling somewhat better after dialysis, has a good appetite. 07/07 Consider for MCOT and note AFIB burden. NEEDS HOME HEALTH d/c planning 35 min Vitals Vitals Vital Signs Date Time Temp Pulse Resp B/P (MAP) Pulse Ox O2 Delivery O2 Flow Rate FiO2 07/08/19 08:00 Room Air 07/08/19 07:31 92 07/08/19 07:00 97.6 69 16 159/74 (102) 97.6 07/07/19 08:00 2.0 Physical Exam General: Alert, Oriented X3, Cooperative, No acute distress Heart: Regular rate (SR), Other (3/6 diastolic murmur to ERB) Lungs: Clear, Other Abdomen: Soft, No tenderness Extremities: No cyanosis, No edema Skin: No breakdown, No significant lesion Labs LABS Laboratory Tests Test 07/07/19 17:03 07/07/19 21:30 07/08/19 07:11 Glucose (Fingerstick) 106 mg/dL (70-99) 113 mg/dL (70-99) 76 mg/dL (70-99) Comment Review of Relevant I have reviewed the following items harish (where applicable) has been applied. Labs Laboratory Tests Test 07/06/19 17:03 07/06/19 20:27 07/07/19 07:44 07/07/19 12:05 Glucose (Fingerstick) 100 mg/dL (70-99) 116 mg/dL (70-99) 95 mg/dL (70-99) 102 mg/dL (70-99) Test 07/07/19 17:03 07/07/19 21:30 07/08/19 07:11 Glucose (Fingerstick) 106 mg/dL (70-99) 113 mg/dL (70-99) 76 mg/dL (70-99) Laboratory Tests Test 07/07/19 17:03 07/07/19 21:30 07/08/19 07:11 Glucose (Fingerstick) 106 mg/dL (70-99) 113 mg/dL (70-99) 76 mg/dL (70-99) Medications Current Medications Ondansetron HCl (Zofran) 4 mg PRN Q4HRS PRN IV NAUSEA/VOMITING; Start 07/03/19 at 19:15 Zolpidem Tartrate (Ambien) 5 mg PRN QHS PRN PO INSOMNIA; Start 07/03/19 at 19:15; Stop 07/04/19 at 13:47; Status DC Acetaminophen (Tylenol) 650 mg PRN Q4HRS PRN PO TEMP OVER 100.4F OR MILD PAIN Last administered on 07/07/19at 00:14; Start 07/03/19 at 19:15 Docusate Sodium (Colace) 100 mg PRN BID PRN PO CONSTIPATION Last administered on 07/08/19at 08:33; Start 07/03/19 at 19:15 Albuterol Sulfate (Ventolin Neb Soln) 2.5 mg PRN Q4HRS PRN NEB SHORTNESS OF BREATH Last administered on 07/04/19at 02:46; Start 07/03/19 at 19:15 Guaifenesin (Robitussin) 200 mg PRN Q4HRS PRN PO COUGH; Start 07/03/19 at 19:15 Lorazepam (Ativan) 0.5 mg PRN Q4HRS PRN PO ANXIETY / AGITATION; Start 07/03/19 at 19:15; Stop 07/04/19 at 13:47; Status DC Amlodipine Besylate (Norvasc) 5 mg DAILY PO Last administered on 07/05/19at 09:14; Start 07/03/19 at 21:00; Stop 07/05/19 at 15:17; Status DC Hydralazine HCl (Apresoline Inj) 10 mg PRN Q4HRS PRN IVP ELEVATED BP, SEE COMMENTS Last administered on 07/07/19at 01:01; Start 07/03/19 at 19:15 Furosemide (Lasix) 40 mg BID92 IVP Last administered on 07/07/19at 13:11; Start 07/03/19 at 21:00 Aspirin (Aspirin Chewable) 81 mg DAILY PO Last administered on 07/08/19at 08:33; Start 07/04/19 at 09:00 Clopidogrel Bisulfate (Plavix) 75 mg DAILY PO Last administered on 07/08/19at 08:33; Start 07/04/19 at 09:00 Nicotine (Nicoderm Cq 21mg) 1 patch PRN DAILY PRN TD NICOTINE WITHDRAWAL; Start 07/03/19 at 19:45 Atorvastatin Calcium (Lipitor) 20 mg QHS PO Last administered on 07/07/19at 21:45; Start 07/03/19 at 21:00 Nicardipine HCl 50 mg/Sodium Chloride 250 ml @ 25 mls/hr CONT PRN IV SEE I/O RECORD Last administered on 07/05/19at 06:46; Start 07/04/19 at 00:15; Stop 07/05/19 at 15:17; Status DC Sodium Chloride 1,000 ml @ 1,000 mls/hr Q1H PRN IV hypotension; Start 07/04/19 at 09:47; Stop 07/04/19 at 15:46; Status DC Albumin Human 200 ml @ 200 mls/hr 1X PRN PRN IV Hypotension; Start 07/04/19 at 10:00; Stop 07/04/19 at 15:59; Status DC Acetaminophen (Tylenol) 500 mg 1X PRN PRN PO MILD PAIN / TEMP Last administered on 07/04/19at 20:14; Start 07/04/19 at 10:00; Stop 07/05/19 at 09:59; Status DC Diphenhydramine HCl (Benadryl) 25 mg 1X PRN PRN IV ITCHING; Start 07/04/19 at 10:00; Stop 07/05/19 at 09:59; Status DC Diphenhydramine HCl (Benadryl) 25 mg 1X PRN PRN IV ITCHING; Start 07/04/19 at 10:00; Stop 07/05/19 at 09:59; Status DC Sodium Chloride 1,000 ml @ 400 mls/hr Q2H30M PRN IV PATENCY; Start 07/04/19 at 09:47; Stop 07/04/19 at 21:46; Status DC Info (PHARMACY MONITORING -- do not chart) 1 each PRN DAILY PRN MC SEE COMMENTS; Start 07/04/19 at 10:00; Status Cancel Trazodone HCl (Desyrel) 50 mg PRN QHS PRN PO INSOMNIA Last administered on 07/07/19at 21:45; Start 07/04/19 at 21:00 Cyanocobalamin (Vitamin B-12) 1,000 mcg 1X ONCE IM Last administered on 07/05/19at 09:15; Start 07/05/19 at 08:15; Stop 07/05/19 at 08:16; Status DC Cyanocobalamin (Vitamin B-12) 1,000 mcg DAILY PO Last administered on 07/08/19at 08:33; Start 07/06/19 at 09:00 Albuterol/ Ipratropium (Duoneb) 3 ml RTQID NEB Last administered on 07/08/19at 07:29; Start 07/05/19 at 16:00 Budesonide (Pulmicort) 0.5 mg RTBID NEB Last administered on 07/08/19at 07:29; Start 07/05/19 at 20:00 Hydralazine HCl (Apresoline) 75 mg TID PO Last administered on 07/07/19at 09:26; Start 07/05/19 at 14:00; Stop 07/07/19 at 13:02; Status DC Ceftriaxone Sodium (Rocephin) 1 gm Q24H IVP Last administered on 07/07/19at 13:11; Start 07/05/19 at 13:30 Isosorbide Mononitrate (Imdur) 60 mg DAILY PO Last administered on 07/07/19at 09:26; Start 07/05/19 at 15:00 Hydralazine HCl (Apresoline Inj) 10 mg PRN Q4HRS PRN IVP ELEVATED BP, SEE COMMENTS; Start 07/05/19 at 15:15; Status UNV Amlodipine Besylate (Norvasc) 10 mg DAILY PO Last administered on 07/07/19at 09:27; Start 07/06/19 at 09:00 Lisinopril (Prinivil) 40 mg DAILY PO Last administered on 07/07/19at 09:26; Start 07/05/19 at 16:00 Lactobacillus Rhamnosus (Culturelle) 1 cap BID PO Last administered on 07/08/19at 08:33; Start 07/05/19 at 21:00 Sodium Chloride 1,000 ml @ 1,000 mls/hr Q1H PRN IV hypotension; Start 07/06/19 at 08:12; Stop 07/06/19 at 14:11; Status DC Diphenhydramine HCl (Benadryl) 25 mg 1X PRN PRN IV ITCHING; Start 07/06/19 at 08:15; Stop 07/07/19 at 08:15; Status DC Diphenhydramine HCl (Benadryl) 25 mg 1X PRN PRN IV ITCHING; Start 07/06/19 at 08:15; Stop 07/07/19 at 08:15; Status DC Sodium Chloride 1,000 ml @ 400 mls/hr Q2H30M PRN IV PATENCY; Start 07/06/19 at 08:12; Stop 07/06/19 at 20:11; Status DC Info (PHARMACY MONITORING -- do not chart) 1 each PRN DAILY PRN MC SEE COMMENTS; Start 07/06/19 at 08:15 Lidocaine HCl (Xylocaine-Mpf 1% 2ml Vial) 2 ml STK-MED ONCE .ROUTE ; Start 07/06/19 at 08:55; Stop 07/06/19 at 08:56; Status DC Lidocaine HCl (Xylocaine-Mpf 1% 2ml Vial) 2 ml STK-MED ONCE .ROUTE ; Start 07/06/19 at 09:00; Stop 07/07/19 at 11:17; Status DC Hydralazine HCl (Apresoline) 100 mg TID PO Last administered on 07/07/19at 21:44; Start 07/07/19 at 14:00 Active Scripts Active Reported Children's Aspirin (Aspirin) 81 Mg Tab.chew 1 Tab PO DAILY 30 Days Clopidogrel (Clopidogrel Bisulfate) 75 Mg Tablet 1 Tab PO DAILY Proair Hfa (Albuterol Sulfate) 8.5 Gm Hfa.aer.ad 2 Puff IH PRN Q4-6HRS PRN 21 Days Atorvastatin Calcium 80 Mg Tablet 20 Mg PO QHS Lisinopril 40 Mg Tablet 1 Tab PO DAILY Nifedipine Er (Nifedipine) 30 Mg Tablet.er 3 Tab PO BID Hydralazine Hcl 50 Mg Tablet 1.5 Tab PO TID NICODERM CQ 21mg (Nicotine) 1 Each Patch.td24 1 Patch TP DAILY PRN Vitals/I & O Vital Sign - Last 24 Hours 07/07/19 07/07/19 07/07/19 07/07/19 13:12 15:00 15:45 19:43 Temp 98.2 98.2 98.2 98.2 Pulse 81 77 77 Resp 16 16 B/P (MAP) 170/75 172/78 (109) 160/71 (100) Pulse Ox 94 96 94 O2 Delivery Room Air Room Air Room Air 07/07/19 07/07/19 07/07/19 07/07/19 20:00 20:28 20:28 21:44 Pulse 77 B/P (MAP) 160/71 Pulse Ox 100 100 O2 Delivery Room Air Room Air Room Air 07/07/19 07/08/19 07/08/19 07/08/19 23:00 02:35 07:00 07:31 Temp 98.3 98.3 97.6 98.3 98.3 97.6 Pulse 77 77 69 Resp 16 16 16 B/P (MAP) 149/61 (90) 140/82 (101) 159/74 (102) Pulse Ox 91 93 94 92 O2 Delivery Room Air Room Air Room Air Room Air 07/08/19 08:00 O2 Delivery Room Air Intake and Output 07/07/19 07/07/19 07/08/19 15:00 23:00 07:00 Intake Total 2400 ml 70 ml 100 ml Balance 2400 ml 70 ml 100 ml RAJANI ABERNATHY MD Jul 08, 2019 12:38
--- NOTE | 2019-07-08 12:43 | PDOC ---
PROGRESS NOTES Subjective Subjective SEEN IN FOLLOW UP OF ESRD Objective Objective Vital Signs Date Time Temp Pulse Resp B/P (MAP) Pulse Ox O2 Delivery O2 Flow Rate FiO2 07/08/19 08:00 Room Air 07/08/19 07:31 92 07/08/19 07:00 97.6 69 16 159/74 (102) 97.6 07/07/19 08:00 2.0 Intake and Output 07/08/19 07:00 Intake Total 2570 ml Balance 2570 ml Intake Oral 2570 ml # Voids 3 # Bowel Movements 2 Physical Exam Abdomen: Normal bowel sounds, Soft, No tenderness, No hepatosplenomegaly, No masses Heart: Regular rate, Normal S1, Normal S2, No murmurs, Gallops Extremities: No clubbing, No cyanosis, No edema, Normal pulses, No ten derness/swelling General: Alert Lungs: Clear to auscultation, Normal air movement Psych/Mental Status: Mental status NL, Mood NL Diagnosis RENAL FAILURE: ESRD Plan Plan of Care SEEN AND EVALUATED ON DIALYSIS. TOLERATING WELL. EPOGEN PER LAB Comment Review of Relevant I have reviewed the following items harish (where applicable) has been applied. Labs Laboratory Tests Test 07/06/19 17:03 07/06/19 20:27 07/07/19 07:44 07/07/19 12:05 Glucose (Fingerstick) 100 mg/dL (70-99) 116 mg/dL (70-99) 95 mg/dL (70-99) 102 mg/dL (70-99) Test 07/07/19 17:03 07/07/19 21:30 07/08/19 07:11 Glucose (Fingerstick) 106 mg/dL (70-99) 113 mg/dL (70-99) 76 mg/dL (70-99) Laboratory Tests Test 07/07/19 17:03 07/07/19 21:30 07/08/19 07:11 Glucose (Fingerstick) 106 mg/dL (70-99) 113 mg/dL (70-99) 76 mg/dL (70-99) Medications Current Medications Ondansetron HCl (Zofran) 4 mg PRN Q4HRS PRN IV NAUSEA/VOMITING; Start 07/03/19 at 19:15 Zolpidem Tartrate (Ambien) 5 mg PRN QHS PRN PO INSOMNIA; Start 07/03/19 at 19:15; Stop 07/04/19 at 13:47; Status DC Acetaminophen (Tylenol) 650 mg PRN Q4HRS PRN PO TEMP OVER 100.4F OR MILD PAIN Last administered on 07/07/19at 00:14; Start 07/03/19 at 19:15 Docusate Sodium (Colace) 100 mg PRN BID PRN PO CONSTIPATION Last administered on 07/08/19 08:33; Start 07/03/19 at 19:15 Albuterol Sulfate (Ventolin Neb Soln) 2.5 mg PRN Q4HRS PRN NEB SHORTNESS OF BREATH Last administered on 07/04/19at 02:46; Start 07/03/19 at 19:15 Guaifenesin (Robitussin) 200 mg PRN Q4HRS PRN PO COUGH; Start 07/03/19 at 19:15 Lorazepam (Ativan) 0.5 mg PRN Q4HRS PRN PO ANXIETY / AGITATION; Start 07/03/19 at 19:15; Stop 07/04/19 at 13:47; Status DC Amlodipine Besylate (Norvasc) 5 mg DAILY PO Last administered on 07/05/19at 09:14; Start 07/03/19 at 21:00; Stop 07/05/19 at 15:17; Status DC Hydralazine HCl (Apresoline Inj) 10 mg PRN Q4HRS PRN IVP ELEVATED BP, SEE COMMENTS Last administered on 07/07/19at 01:01; Start 07/03/19 at 19:15 Furosemide (Lasix) 40 mg BID92 IVP Last administered on 07/07/19at 13:11; Start 07/03/19 at 21:00 Aspirin (Aspirin Chewable) 81 mg DAILY PO Last administered on 07/08/19at 08:33; Start 07/04/19 at 09:00 Clopidogrel Bisulfate (Plavix) 75 mg DAILY PO Last administered on 07/08/19at 08:33; Start 07/04/19 at 09:00 Nicotine (Nicoderm Cq 21mg) 1 patch PRN DAILY PRN TD NICOTINE WITHDRAWAL; Start 07/03/19 at 19:45 Atorvastatin Calcium (Lipitor) 20 mg QHS PO Last administered on 07/07/19at 21:45; Start 07/03/19 at 21:00 Nicardipine HCl 50 mg/Sodium Chloride 250 ml @ 25 mls/hr CONT PRN IV SEE I/O RECORD Last administered on 07/05/19at 06:46; Start 07/04/19 at 00:15; Stop 07/05/19 at 15:17; Status DC Sodium Chloride 1,000 ml @ 1,000 mls/hr Q1H PRN IV hypotension; Start 07/04/19 at 09:47; Stop 07/04/19 at 15:46; Status DC Albumin Human 200 ml @ 200 mls/hr 1X PRN PRN IV Hypotension; Start 07/04/19 at 10:00; Stop 07/04/19 at 15:59; Status DC Acetaminophen (Tylenol) 500 mg 1X PRN PRN PO MILD PAIN / TEMP Last administered on 07/04/19at 20:14; Start 07/04/19 at 10:00; Stop 07/05/19 at 09:59; Status DC Diphenhydramine HCl (Benadryl) 25 mg 1X PRN PRN IV ITCHING; Start 07/04/19 at 10:00; Stop 07/05/19 at 09:59; Status DC Diphenhydramine HCl (Benadryl) 25 mg 1X PRN PRN IV ITCHING; Start 07/04/19 at 10:00; Stop 07/05/19 at 09:59; Status DC Sodium Chloride 1,000 ml @ 400 mls/hr Q2H30M PRN IV PATENCY; Start 07/04/19 at 09:47; Stop 07/04/19 at 21:46; Status DC Info (PHARMACY MONITORING -- do not chart) 1 each PRN DAILY PRN MC SEE COMMENTS; Start 07/04/19 at 10:00; Status Cancel Trazodone HCl (Desyrel) 50 mg PRN QHS PRN PO INSOMNIA Last administered on 07/07/19at 21:45; Start 07/04/19 at 21:00 Cyanocobalamin (Vitamin B-12) 1,000 mcg 1X ONCE IM Last administered on 07/05/19at 09:15; Start 07/05/19 at 08:15; Stop 07/05/19 at 08:16; Status DC Cyanocobalamin (Vitamin B-12) 1,000 mcg DAILY PO Last administered on 07/08/19 08:33; Start 07/06/19 at 09:00 Albuterol/ Ipratropium (Duoneb) 3 ml RTQID NEB Last administered on 07/08/19 07:29; Start 07/05/19 at 16:00 Budesonide (Pulmicort) 0.5 mg RTBID NEB Last administered on 07/08/19 07:29; Start 07/05/19 at 20:00 Hydralazine HCl (Apresoline) 75 mg TID PO Last administered on 07/07/19 09:26; Start 07/05/19 at 14:00; Stop 07/07/19 at 13:02; Status DC Ceftriaxone Sodium (Rocephin) 1 gm Q24H IVP Last administered on 07/07/19 13:11; Start 07/05/19 at 13:30 Isosorbide Mononitrate (Imdur) 60 mg DAILY PO Last administered on 07/07/19 09:26; Start 07/05/19 at 15:00 Hydralazine HCl (Apresoline Inj) 10 mg PRN Q4HRS PRN IVP ELEVATED BP, SEE COMMENTS; Start 07/05/19 at 15:15; Status UNV Amlodipine Besylate (Norvasc) 10 mg DAILY PO Last administered on 07/07/19 09:27; Start 07/06/19 at 09:00 Lisinopril (Prinivil) 40 mg DAILY PO Last administered on 07/07/19 09:26; Start 07/05/19 at 16:00 Lactobacillus Rhamnosus (Culturelle) 1 cap BID PO Last administered on 07/08/19 08:33; Start 07/05/19 at 21:00 Sodium Chloride 1,000 ml @ 1,000 mls/hr Q1H PRN IV hypotension; Start 07/06/19 at 08:12; Stop 07/06/19 at 14:11; Status DC Diphenhydramine HCl (Benadryl) 25 mg 1X PRN PRN IV ITCHING; Start 07/06/19 at 08:15; Stop 07/07/19 at 08:15; Status DC Diphenhydramine HCl (Benadryl) 25 mg 1X PRN PRN IV ITCHING; Start 07/06/19 at 08:15; Stop 07/07/19 at 08:15; Status DC Sodium Chloride 1,000 ml @ 400 mls/hr Q2H30M PRN IV PATENCY; Start 07/06/19 at 08:12; Stop 07/06/19 at 20:11; Status DC Info (PHARMACY MONITORING -- do not chart) 1 each PRN DAILY PRN MC SEE COMMENTS; Start 07/06/19 at 08:15 Lidocaine HCl (Xylocaine-Mpf 1% 2ml Vial) 2 ml STK-MED ONCE .ROUTE ; Start 07/06/19 at 08:55; Stop 07/06/19 at 08:56; Status DC Lidocaine HCl (Xylocaine-Mpf 1% 2ml Vial) 2 ml STK-MED ONCE .ROUTE ; Start 07/06/19 at 09:00; Stop 07/07/19 at 11:17; Status DC Hydralazine HCl (Apresoline) 100 mg TID PO Last administered on 07/07/19at 21:44; Start 07/07/19 at 14:00 Active Scripts Active Reported Children's Aspirin (Aspirin) 81 Mg Tab.chew 1 Tab PO DAILY 30 Days Clopidogrel (Clopidogrel Bisulfate) 75 Mg Tablet 1 Tab PO DAILY Proair Hfa (Albuterol Sulfate) 8.5 Gm Hfa.aer.ad 2 Puff IH PRN Q4-6HRS PRN 21 Days Atorvastatin Calcium 80 Mg Tablet 20 Mg PO QHS Lisinopril 40 Mg Tablet 1 Tab PO DAILY Nifedipine Er (Nifedipine) 30 Mg Tablet.er 3 Tab PO BID Hydralazine Hcl 50 Mg Tablet 1.5 Tab PO TID NICODERM CQ 21mg (Nicotine) 1 Each Patch.td24 1 Patch TP DAILY PRN Vitals/I & O Vital Sign - Last 24 Hours 07/07/19 07/07/19 07/07/19 07/07/19 13:12 15:00 15:45 19:43 Temp 98.2 98.2 98.2 98.2 Pulse 81 77 77 Resp 16 16 B/P (MAP) 170/75 172/78 (109) 160/71 (100) Pulse Ox 94 96 94 O2 Delivery Room Air Room Air Room Air 07/07/19 07/07/19 07/07/19 07/07/19 20:00 20:28 20:28 21:44 Pulse 77 B/P (MAP) 160/71 Pulse Ox 100 100 O2 Delivery Room Air Room Air Room Air 07/07/19 07/08/19 07/08/19 07/08/19 23:00 02:35 07:00 07:31 Temp 98.3 98.3 97.6 98.3 98.3 97.6 Pulse 77 77 69 Resp 16 16 16 B/P (MAP) 149/61 (90) 140/82 (101) 159/74 (102) Pulse Ox 91 93 94 92 O2 Delivery Room Air Room Air Room Air Room Air 07/08/19 08:00 O2 Delivery Room Air Intake and Output 07/07/19 07/07/19 07/08/19 15:00 23:00 07:00 Intake Total 2400 ml 70 ml 100 ml Balance 2400 ml 70 ml 100 ml LETTY MCCARTY MD Jul 08, 2019 12:43
[2019-07-08] MEDS: cefTRIAXone IV Push 1 GM VIAL. IVP SCH ×2 (13:30→15:50)
[2019-07-08 13:48] VITALS: BP 163/73
--- NOTE | 2019-07-08 15:21 | PDOC3 ---
Discharge Summary Date of Admission: Jul 03, 2019 Date of Discharge: Jul 08, 2019 Follow-Up: 1-2 days Admitting Diagnosis comment: discharge dx Dyspnea which seems to be volume overload ESRD on HD Uncontrolled hypertension, hypertensive urgency as per outside facility, remains in poor control 07/06 COPD history of depression History of CAD with old IL as per records, currently asymptomatic 07/05 d/w RN 07/07 Consider for MCOT and note AFIB burden. D/W RN /// inc hydralazine to 100mg po tid Pt. will need outpatient mammogram breast mass vs. cyst Continue with bronchodilators including DuoNebs and Pulmicort. 07/07 BP BETTER d/c planning 35 min see cardiology 2 weeks History of Present Illness History of Present Illness Ms Coburn is a 79 year old female w/ PMHx HTN, ESRD TuThSa, COPD, CAD who recently moved from [place] to [place], [place] who was in her usual state of health until 07/01/2019 when she started noticing dyspnea. She denies sick contacts, no sputum production, no pleurisy has been reported nevertheless she noticed dyspnea especially on exertion. She denies dietary transgression no exc ess fluid and in fact has modified her lifestyle significantly. Stable dry weight of 62kg. Did have desaturations less than 89%, placed on 2 liters of oxygen she does not seem to have excess work of breathing nevertheless she does have evidence of Oscar b lines on x ray done at outside facility. She probably has volume overload and her BP is uncontrolled as per the outside facility report. 07/03: BNP > 35K. Still on O2. Seen on dialysis. Noted with goal 3300 UF at dialysis. No chest pain. 07/05 LESS short of breath with yellow sputum today. NO Wheezing. Feeling somewhat better after dialysis, has a good appetite. 07/07 Consider for MCOT and note AFIB burden. NEEDS HOME HEALTH d/c planning 35 min Vitals Vitals Vital Signs Date Time Temp Pulse Resp B/P (MAP) Pulse Ox O2 Delivery O2 Flow Rate FiO2 07/08/19 08:00 Room Air 07/08/19 07:31 92 07/08/19 07:00 97.6 69 16 159/74 (102) 97.6 07/07/19 08:00 2.0 Physical Exam General: Alert, Oriented X3, Cooperative, No acute distress Heart: Regular rate (SR), Other (3/6 diastolic murmur to ERB) Lungs: Clear, Other Abdomen: Soft, No tenderness Extremities: No cyanosis, No edema Skin: No breakdown, No significant lesion Labs LABS Laboratory Tests Test 07/07/19 17:03 07/07/19 21:30 07/08/19 07:11 Glucose (Fingerstick) 106 mg/dL (70-99) 113 mg/dL (70-99) 76 mg/dL (70-99) Brief Hospital Course Ms. Coburn is a 79 old [sex] who presented with [ ] Discharge Medications Current Medications Ondansetron HCl (Zofran) 4 mg PRN Q4HRS PRN IV NAUSEA/VOMITING; Start 07/03/19 at 19:15 Zolpidem Tartrate (Ambien) 5 mg PRN QHS PRN PO INSOMNIA; Start 07/03/19 at 19:15; Stop 07/04/19 at 13:47; Status DC Acetaminophen (Tylenol) 650 mg PRN Q4HRS PRN PO TEMP OVER 100.4F OR MILD PAIN Last administered on 07/07/19at 00:14; Start 07/03/19 at 19:15 Docusate Sodium (Colace) 100 mg PRN BID PRN PO CONSTIPATION Last administered on 07/08/19at 08:33; Start 07/03/19 at 19:15 Albuterol Sulfate (Ventolin Neb Soln) 2.5 mg PRN Q4HRS PRN NEB SHORTNESS OF BREATH Last administered on 07/04/19at 02:46; Start 07/03/19 at 19:15 Guaifenesin (Robitussin) 200 mg PRN Q4HRS PRN PO COUGH; Start 07/03/19 at 19:15 Lorazepam (Ativan) 0.5 mg PRN Q4HRS PRN PO ANXIETY / AGITATION; Start 07/03/19 at 19:15; Stop 07/04/19 at 13:47; Status DC Amlodipine Besylate (Norvasc) 5 mg DAILY PO Last administered on 07/05/19at 09:14; Start 07/03/19 at 21:00; Stop 07/05/19 at 15:17; Status DC Hydralazine HCl (Apresoline Inj) 10 mg PRN Q4HRS PRN IVP ELEVATED BP, SEE COMMENTS Last administered on 07/07/19at 01:01; Start 07/03/19 at 19:15 Furosemide (Lasix) 40 mg BID92 IVP Last administered on 07/07/19at 13:11; Start 07/03/19 at 21:00 Aspirin (Aspirin Chewable) 81 mg DAILY PO Last administered on 07/08/19at 08:33; Start 07/04/19 at 09:00 Clopidogrel Bisulfate (Plavix) 75 mg DAILY PO Last administered on 07/08/19at 08:33; Start 07/04/19 at 09:00 Nicotine (Nicoderm Cq 21mg) 1 patch PRN DAILY PRN TD NICOTINE WITHDRAWAL; Start 07/03/19 at 19:45 Atorvastatin Calcium (Lipitor) 20 mg QHS PO Last administered on 07/07/19at 21:45; Start 07/03/19 at 21:00 Nicardipine HCl 50 mg/Sodium Chloride 250 ml @ 25 mls/hr CONT PRN IV SEE I/O RECORD Last administered on 07/05/19at 06:46; Start 07/04/19 at 00:15; Stop 07/05/19 at 15:17; Status DC Sodium Chloride 1,000 ml @ 1,000 mls/hr Q1H PRN IV hypotension; Start 07/04/19 at 09:47; Stop 07/04/19 at 15:46; Status DC Albumin Human 200 ml @ 200 mls/hr 1X PRN PRN IV Hypotension; Start 07/04/19 at 10:00; Stop 07/04/19 at 15:59; Status DC Acetaminophen (Tylenol) 500 mg 1X PRN PRN PO MILD PAIN / TEMP Last administered on 07/04/19at 20:14; Start 07/04/19 at 10:00; Stop 07/05/19 at 09:59; Status DC Diphenhydramine HCl (Benadryl) 25 mg 1X PRN PRN IV ITCHING; Start 07/04/19 at 10:00; Stop 07/05/19 at 09:59; Status DC Diphenhydramine HCl (Benadryl) 25 mg 1X PRN PRN IV ITCHING; Start 07/04/19 at 10:00; Stop 07/05/19 at 09:59; Status DC Sodium Chloride 1,000 ml @ 400 mls/hr Q2H30M PRN IV PATENCY; Start 07/04/19 at 09:47; Stop 07/04/19 at 21:46; Status DC Info (PHARMACY MONITORING -- do not chart) 1 each PRN DAILY PRN MC SEE COMMENTS; Start 07/04/19 at 10:00; Status Cancel Trazodone HCl (Desyrel) 50 mg PRN QHS PRN PO INSOMNIA Last administered on at 21:45; Start 07/04/19 at 21:00 Cyanocobalamin (Vitamin B-12) 1,000 mcg 1X ONCE IM Last administered on 07/05/19at 09:15; Start 07/05/19 at 08:15; Stop 07/05/19 at 08:16; Status DC Cyanocobalamin (Vitamin B-12) 1,000 mcg DAILY PO Last administered on 07/08/19at 08:33; Start 07/06/19 at 09:00 Albuterol/ Ipratropium (Duoneb) 3 ml RTQID NEB Last administered on 07/08/19at 07:29; Start 07/05/19 at 16:00 Budesonide (Pulmicort) 0.5 mg RTBID NEB Last administered on 07/08/19at 07:29; Start 07/05/19 at 20:00 Hydralazine HCl (Apresoline) 75 mg TID PO Last administered on 07/07/19at 09:26; Start 07/05/19 at 14:00; Stop 07/07/19 at 13:02; Status DC Ceftriaxone Sodium (Rocephin) 1 gm Q24H IVP Last administered on 07/07/19at 13:11; Start 07/05/19 at 13:30 Isosorbide Mononitrate (Imdur) 60 mg DAILY PO Last administered on 07/07/19at 09:26; Start 07/05/19 at 15:00 Hydralazine HCl (Apresoline Inj) 10 mg PRN Q4HRS PRN IVP ELEVATED BP, SEE COMMENTS; Start 07/05/19 at 15:15; Status UNV Amlodipine Besylate (Norvasc) 10 mg DAILY PO Last administered on 07/07/19at 09:27; Start 07/06/19 at 09:00 Lisinopril (Prinivil) 40 mg DAILY PO Last administered on 07/07/19at 09:26; Start 07/05/19 at 16:00 Lactobacillus Rhamnosus (Culturelle) 1 cap BID PO Last administered on at 08:33; Start 07/05/19 at 21:00 Sodium Chloride 1,000 ml @ 1,000 mls/hr Q1H PRN IV hypotension; Start 07/06/19 at 08:12; Stop 07/06/19 at 14:11; Status DC Diphenhydramine HCl (Benadryl) 25 mg 1X PRN PRN IV ITCHING; Start 07/06/19 at 08:15; Stop 07/07/19 at 08:15; Status DC Diphenhydramine HCl (Benadryl) 25 mg 1X PRN PRN IV ITCHING; Start 07/06/19 at 08:15; Stop 07/07/19 at 08:15; Status DC Sodium Chloride 1,000 ml @ 400 mls/hr Q2H30M PRN IV PATENCY; Start 07/06/19 at 08:12; Stop 07/06/19 at 20:11; Status DC Info (PHARMACY MONITORING -- do not chart) 1 each PRN DAILY PRN MC SEE COMMENTS; Start 07/06/19 at 08:15 Lidocaine HCl (Xylocaine-Mpf 1% 2ml Vial) 2 ml STK-MED ONCE .ROUTE ; Start 07/06/19 at 08:55; Stop 07/06/19 at 08:56; Status DC Lidocaine HCl (Xylocaine-Mpf 1% 2ml Vial) 2 ml STK-MED ONCE .ROUTE ; Start 07/06/19 at 09:00; Stop 07/07/19 at 11:17; Status DC Hydralazine HCl (Apresoline) 100 mg TID PO Last administered on 07/07/19at 21:44; Start 07/07/19 at 14:00 Active Scripts Active Reported Children's Aspirin (Aspirin) 81 Mg Tab.chew 1 Tab PO DAILY 30 Days Clopidogrel (Clopidogrel Bisulfate) 75 Mg Tablet 1 Tab PO DAILY Proair Hfa (Albuterol Sulfate) 8.5 Gm Hfa.aer.ad 2 Puff IH PRN Q4-6HRS PRN 21 Days Atorvastatin Calcium 80 Mg Tablet 20 Mg PO QHS Lisinopril 40 Mg Tablet 1 Tab PO DAILY Nifedipine Er (Nifedipine) 30 Mg Tablet.er 3 Tab PO BID Hydralazine Hcl 50 Mg Tablet 1.5 Tab PO TID NICODERM CQ 21mg (Nicotine) 1 Each Patch.td24 1 Patch TP DAILY PRN Vital Signs Vital Signs Date Time Temp Pulse Resp B/P (MAP) Pulse Ox O2 Delivery O2 Flow Rate FiO2 07/08/19 13:48 98.3 73 18 163/73 (103) 96 Room Air 98.3 07/07/19 08:00 2.0 Labs Laboratory Tests Test 07/06/19 17:03 07/06/19 20:27 07/07/19 07:44 07/07/19 12:05 Glucose (Fingerstick) 100 mg/dL (70-99) 116 mg/dL (70-99) 95 mg/dL (70-99) 102 mg/dL (70-99) Test 07/07/19 17:03 07/07/19 21:30 07/08/19 07:11 07/08/19 13:42 Glucose (Fingerstick) 106 mg/dL (70-99) 113 mg/dL (70-99) 76 mg/dL (70-99) 89 mg/dL (70-99) Laboratory Tests Test 07/07/19 17:03 07/07/19 21:30 07/08/19 07:11 07/08/19 13:42 Glucose (Fingerstick) 106 mg/dL (70-99) 113 mg/dL (70-99) 76 mg/dL (70-99) 89 mg/dL (70-99) Allergies Allergies Coded Allergies Type Severity Reaction Last Updated Verified Sulfa (Sulfonamide Antibiotics) Allergy Severe 07/03/19 Yes iodine Allergy Severe 07/03/19 Yes azithromycin Allergy Intermediate 07/03/19 Yes carvedilol Adverse Reaction Severe 07/03/19 Yes RAJANI ABERNATHY MD Jul 08, 2019 15:21
[2019-07-08] MEDS ORDERED: CYAN-25 PO (15:29)
[2019-07-08] MEDS ORDERED: ACET325T9 PO (15:29)
[2019-07-08] MEDS ORDERED: AMLO10TA8 PO (15:29)
[2019-07-08] MEDS ORDERED: LACT1CAP19 PO (15:29)
[2019-07-08] MEDS ORDERED: HYDR-2869 PO (15:29)
[2019-07-08] MEDS ORDERED: ISOS30TA4 PO (15:29)
[2019-07-08] MEDS ORDERED: DOCU-153 PO (15:29)
[2019-07-08] MEDS ORDERED: BUDE0.5A NEB (15:29)
[2019-07-08] MEDS ORDERED: AMOX1TAB58 PO (15:29)
[2019-07-08] MEDS ORDERED: IPRA3AMP29 NEB (15:29)
--- NOTE | 2019-07-08 15:32 | SNU/HH DC ---
DISCHARGE WITH HOME HEALTH DISCHARGE INFORMATION: Condition on Discharge: Stable CODE STATUS: Code Status: Full HOME HEALTH: Face to Face: I certify this patient is under my care and that I, or a nurse practitioner or physician's orthopedic assistant working with me, had a face to face encounter that meets the physician face to face encounter requirements with this patient on []. Medical Complications: COPD RN For Eval/Treatment: Yes Physical Therapy For: Evalulation/Treatment Occupational Therapy For: Evaluation/Treatment Speech Language Pathology For: Evaluation/Treatment Home Health Aide For: Self-care NUTRITION EDUCATOR For: Community Resources Pt Meets Homebound Status: Fatigue w/ amb. POST DISCHARGE ORDERS: Activity Instructions for Disc: Activity as tolerated DIET AFTER DISCHARGE: Renal CHECKS AFTER DISCHARGE: Checks after discharge: Check blood press - daily TREATMENT/EQUIPMENT ORDERS: Discharge Respiratory Equipmen: Nebulizer CERTIFICATION STATEMENT: Certification Statement: Certification Statement: Based on the above finding, I certify that this patient is confined to the home and needs intermittent shelter care, physical therapy and/or speech therapy, or continues to need occupational therapy.~ This patient is under my care, and I have initiated the establishment of the plan of care.~ This patient will be followed by myself or a community physician who will periodically review the plan of care. Home Meds Active Scripts Amoxicillin/Potassium Clav (AUGMENTIN 500-125 TABLET) 1 Each Tablet, 1 TAB PO DAILY08 for lungs for 10 Days, #10 TAB 0 Refills Prov:RAJANI ABERNATHY MD 07/08/19 Cyanocobalamin (Vitamin B-12) (VITAMIN B-12) 1,000 Mcg Tablet, 1000 MCG PO DAILY for supplement for 30 Days, #30 TAB Prov:RAJANI ABERNATHY MD 07/08/19 Lactobacillus Rhamnosus Gg (CULTURELLE) 1 Each Cap.sprink, 1 CAP PO BID for supplement for 30 Days, #60 CAP Prov:RAJANI ABERNATHY MD 07/08/19 Docusate Sodium (DOK) 100 Mg Capsule, 100 MG PO PRN BID PRN for CONSTIPATION for 30 Days, #60 CAP Prov:RAJANI ABERNATHY MD 07/08/19 Budesonide (BUDESONIDE) 0.5 Mg/2 Ml Ampul.neb, 0.5 MG NEB RTBID for lungs for 30 Days, #60 EACH Prov:RAJANI ABERNATHY MD 07/08/19 Acetaminophen (TYLENOL) 325 Mg Tablet, 650 MG PO PRN Q4HRS PRN for TEMP OVER 100.4F OR MILD PAIN for 30 Days, #60 TAB Prov:RAJANI ABERNATHY MD 07/08/19 Amlodipine Besylate (AMLODIPINE BESYLATE) 10 Mg Tablet, 10 MG PO DAILY for blood pressure for 30 Days, #30 TAB Prov:RAJANI ABERNATHY MD 07/08/19 Isosorbide Mononitrate (ISOSORBIDE MONONITRATE ER) 30 Mg Tab.er.24h, 60 MG PO DAILY for heart for 30 Days, #60 TAB.SR Prov:RAJANI ABERNATHY MD 07/08/19 Hydralazine Hcl (HYDRALAZINE HCL) 50 Mg Tablet, 100 MG PO TID for blood pressure for 30 Days, #180 TAB Prov:RAJANI ABERNATHY MD 07/08/19 Ipratropium/Albuterol Sulfate (DUONEB 0.5-3(2.5) MG/3 ML) 3 Ml Ampul.neb, 3 ML NEB RTQID for lungs for 30 Days, #120 EACH Prov:RAJANI ABERNATHY MD 07/08/19 Reported Medications Aspirin (Children's Aspirin) 81 Mg Tab.chew, 1 TAB PO DAILY for 30 Days, #30 TAB 0 Refills 07/03/19 Clopidogrel Bisulfate (CLOPIDOGREL) 75 Mg Tablet, 1 TAB PO DAILY, #90 TAB 1 Refill 07/03/19 Albuterol Sulfate (Proair Hfa) 8.5 Gm Hfa.aer.ad, 2 PUFF IH PRN Q4-6HRS PRN for SHORTNESS OF BREATH for 21 Days, #1 INHALER 0 Refills 07/03/19 Atorvastatin Calcium (Atorvastatin Calcium) 80 Mg Tablet, 20 MG PO QHS for FOR HIGH CHOLESTEROL, TAB 07/03/19 Lisinopril (LISINOPRIL) 40 Mg Tablet, 1 TAB PO DAILY, #30 TAB 5 Refills 07/03/19 Nicotine (NICODERM CQ 21mg) 1 Each Patch.td24, 1 PATCH TP DAILY PRN for ANXIETY / AGITATION, #28 PATCH 1 Refill 07/03/19 Discontinued Reported Medications Nifedipine (NIFEDIPINE ER) 30 Mg Tablet.er, 3 TAB PO BID, #30 TAB 5 Refills 07/03/19 Hydralazine Hcl (HYDRALAZINE HCL) 50 Mg Tablet, 1.5 TAB PO TID, #90 TAB 5 Refills 07/03/19 RAJANI ABERNATHY MD Jul 08, 2019 15:32
[2019-07-08 15:59] VITALS: BP 175/72
[2019-07-08 17:38] VITALS: BP 167/94
--- NOTE | 2019-07-08 17:39 | NUR ---
Discharge Note: CHIQUITA RENO MCNEAL Discharge instructions and discharge home medications reviewed with Patient and a copy given. All questions have been answered and understanding verbalized. The following instructions and handouts were given: HTN, managing BP, BP record sheet, edema, fluid and sodium restriction, using a nebulizer Discontinued lines and drains: Peripheral IV intact. Patient discharged to Home w/services with Family Member via Wheelchair
--- NOTE | 2019-07-08 17:42 | NUR ---
RN NOTE patients correct address is [address] [place] [address], [place] [address].
== END 2019-07-08 17:46 | disposition home health service (06) | DRG 291 ==
LOC: 6 SOUTH 17:42 → 2 NORTH 23:22
PROVIDERS: ADMIT Internal Medicine; ATTEND Internal Medicine
PROC: 5A1D70Z Performance of Urinary Filtration, Intermittent, Less than 6 Hours Per Day (ICD-10-PCS; 2019-07-04)
PROC: 5A09357 Assistance with Respiratory Ventilation, Less than 24 Consecutive Hours, Continuous Positive Airway Pressure (ICD-10-PCS; principal; 2019-07-05)
PROC: 5A1D70Z Performance of Urinary Filtration, Intermittent, Less than 6 Hours Per Day (ICD-10-PCS; 2019-07-06)
DX: I13.2 Hypertensive heart and chronic kidney disease with heart failure and with stage 5 chronic kidney disease, or end stage renal disease (principal); J96.01 Acute respiratory failure with hypoxia; I50.33 Acute on chronic diastolic (congestive) heart failure; N18.6 End stage renal disease; J44.1 Chronic obstructive pulmonary disease with (acute) exacerbation; D53.9 Nutritional anemia, unspecified; E11.22 Type 2 diabetes mellitus with diabetic chronic kidney disease; E11.649 Type 2 diabetes mellitus with hypoglycemia without coma; E78.5 Hyperlipidemia, unspecified; F17.210 Nicotine dependence, cigarettes, uncomplicated; I16.0 Hypertensive urgency; I25.10 Atherosclerotic heart disease of native coronary artery without angina pectoris; I25.2 Old myocardial infarction; I27.20 Pulmonary hypertension, unspecified; I48.0 Paroxysmal atrial fibrillation; Z79.02 Long term (current) use of antithrombotics/antiplatelets; Z82.49 Family history of ischemic heart disease and other diseases of the circulatory system; Z86.711 Personal history of pulmonary embolism; Z86.73 Personal history of transient ischemic attack (TIA), and cerebral infarction without residual deficits; Z87.892 Personal history of anaphylaxis; Z95.5 Presence of coronary angioplasty implant and graft; Z99.2 Dependence on renal dialysis; E21.3 Hyperparathyroidism, unspecified; F32.9 Major depressive disorder, single episode, unspecified; F41.9 Anxiety disorder, unspecified; M19.90 Unspecified osteoarthritis, unspecified site; Z79.899 Other long term (current) drug therapy
CPT/HCPCS: 36415; 71250; 80048; 80053; 80061; 80069; 82607; 82962; 83735; 83880; 84145; 84443; 85025; 93005; 93306; 94640; 94667; 94668; 94760; G0238; J0360; J0696; J1940; J3420; J3490; J7050; G0378; J7030; J7613; J7626